=== PATIENT | female | born 1950 | race Caucasian/White ===

== ENCOUNTER 2019-07-02 15:29 | Inpatient (IN) ==
--- NOTE | 2019-07-02 16:04 | Emergency Department Note ---
ED Provider Note CHIEF COMPLAINT: Fall, left sided pain HISTORY OF PRESENT ILLNESS: The patient is a 68 y/o female who presents to the ER because of a fall. Patient was walking down her basement steps with new shoes on and tripped accidentally. The patient also notes the following associated symptoms: left eyebrow laceration, CHI, left elbow pain, left hip and rib pain. The symptoms started 60 min ago and are worsening with movement. The patient has tried the following for relief : no medication or treatment. Pain 9/10. Pt denies LOC, headache, visual changes, neck pain, right chest pain, breathing difficulties, nausea, vomiting, abdominal pain, back pain, other extremity pain, numbness, weakness, or other complaints. REVIEW OF SYSTEMS: See HPI for pertinent positives and negatives. A total of ten systems were reviewed and were otherwise negative. PMHx/PSHx: [place] teeth surgery Tonsillectomy SOCIAL HISTORY: Patient lives at home. PHYSICAL EXAM: GENERAL: Awake, alert, uncomfortable-appearing, in no distress HENT: Normocephalic, left eyebrow laceration. Oropharynx unremarkable. EYES: PERRL. Normal conjunctiva. Sclera non-icteric. NECK: Inspection normal. Non-tender. Supple. No nuchal rigidity. FROM. No masses. RESPIRATORY: Clear to auscultation. No wheezes. No rales. Normal respiratory effort. CARDIAC: Normal rate. Normal rhythm. No murmurs. No rubs. Extremities warm and well perfused. Pulses equal. No JVD. GI: Soft, non-distended. No tenderness to palpation. No rebound or guarding. No masses. MUSCULOSKELETAL: Right upper and right lower extremity atraumatic. Mild t enderness below the left hip joint but no limitation in range of motion. No significant pelvic tenderness or greater trochanteric tenderness. There is moderate swelling, and abrasion and tenderness of the left elbow. Range of motion is significantly limited secondary to pain. Some mild tenderness of the left shoulder without obvious dislocation. The midshaft of the humerus is nontender. Forearm, wrist and hand of the left upper extremity are unremarkable and examined normally. Left upper extremity is neurovascularly intact over all dermatomes and myotomes. Chest examination reveals no right or midline tenderness. There is left lower mid axillary rib tenderness to palpation. The back is symmetrical on inspection without obvious abnormality. There is no CVA tenderness to palpation. No joint edema. LOWER EXTREMITIES: Calves are equal size bilaterally and non-tender. No edema. No discoloration. NEURO: Normal sensorium. No sensory or motor deficits noted. SKIN: No rash or jaundice noted. EMERGENCY DEPARTMENT COURSE: 1601: Past medical records reviewed. The patient was evaluated in room B3, and a complete history and physical examination were performed. 1799: I reevaluated the patient and she states that the pain is tolerable as long as she is not moving. 1808: I updated the patient on the test results and plan for orthopedic consul tation 1823: I discussed the patient's case with Dr. Clemons- Orthopedic Surgery. He recommended splinting, pain control and outpatient follow-up for surgery likely this coming July 06. 1829: I updated the patient on the plan and she verbally agrees and understands. 1906: Patient was reassessed and discussed outpatient management. Patient felt comfortable with the plan. 2005: Patient became nauseated prior to discharge and was given IV Zofran. 2109: Patient had nausea and vomiting. She feels generally weak. IV Reglan and saline hydration performed. Discussed further management in the hospital given her nausea and vomiting. Consulted with internal medicine. MEDICAL DECISION MAKING: Triage Nursing notes reviewed. The patient's presentation and history were concerning for trauma. Differential diagnosis includes fracture, dislocation, soft tissue injury, closed head injury, rib fracture, intrathoracic process, intrapelvic process, as well as others. Additional history obtained from the patient significant other. Patient was evaluated. She has a laceration over the left eyebrow but has no other signs of head injury. She has no headache at this time. She believes that she struck possibly a faucet or edge of a sink. She was not knocked out. She has no neck tenderness. She does have rib and elbow tenderness along with some shoulder discomfort. X-ray imaging of those areas were ordered. Her hip examines extremely well other than some mild proximal thigh tenderness to palpation. She is able to bear weight. She was given a dose of IV Dilaudid and Zofran. Let gel was applied to the laceration. Patient had the laceration repaired by Glenna Angeles PA-C. Please see her note. I did consult with orthopedics given the fact that she has a significant left elbow fracture. The fracture fragments are distracted. The radial head and proximal ulnar fragments are out of alignment. The patient is neurovascular intact. She was splinted. After discussion with Dr. Clemons the patient was prepped for outpatient treatment however she became nauseated. Head CT was performed and negative. She was treated with IV Zofran and IV Reglan. Given her general ill feeling and the nausea she will not do well at home tonight. I discussed the case with the [facility] hospitalist. The patient was evaluated f or further management in the hospital. DEFINITIVE FRACTURE CARE NOTE: Dx: Closed left elbow fracture Plan: Immobilization, rest, ice, elevation, analgesia, orthopedic follow up in 4 days. SPLINTING NOTE: Dx: Left elbow fracture Procedure: Posterior long-arm with stirrup Ortho-Glass splint Indication: Closed fracture of the left elbow The injured extremity was identified. The patient was prepped and measured for the placement of a Posterior long-arm with stirrup Ortho-Glass splint. Splint applied in the standard fashion over a layer of webril and secured using an elastic bandage. Set into a position of function. Normal neurovascular status after placement verified by me. The patient tolerated the procedure well and the care of the splint was discussed with the patient and . No complications. 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 Beliefs That Will Affect Care: None Current Living Situation: Spouse Other Information That Helps Us Care for You: No Feels Safe at Home: No Is there a partner from a previous relationship who is making you feel unsafe now?: No Any Concerns about Your Family Situation: No Would You Like to Speak to Someone About Your Situation: No Safety Concerns: Feels Safe At This Time Smoking Status: Former smoker Tobacco Type: cigarettes ; Smoking End Date: 1992 ; Hx Alcohol Use: Yes Alcohol type: beer and wine Hx Substance Use: No Results & Data Vital Signs Vital Signs - 24 hr 07/02/19 15:35 07/02/19 16:47 07/02/19 18:55 Temperature 36.4 C L Temperature Source Oral Sepsis Recent Fever Within 48 Hours No Sepsis New/Unexplained Change in Mental Status No Sepsis Action Taken by Nursing No Action Required Pulse Rate 77 Pulse Rate [Finger] 72 71 Respiratory Rate 18 16 18 Blood Pressure 116/76 Blood Pressure [Right Arm] 100/61 Blood Pressure Mean 89 Blood Pressure Mean [Right Arm] 74 Pulse Oximetry 98 98 99 Oxygen Delivery Method Room Air Room Air Room Air 07/02/19 20:22 07/02/19 21:21 07/02/19 22:06 Temperature Temperature Source Sepsis Recent Fever Within 48 Hours Sepsis New/Unexplained Change in Mental Status Sepsis Action Taken by Nursing Pulse Rate Pulse Rate [Finger] 86 78 76 Respiratory Rate 14 12 14 Blood Pressure Blood Pressure [Right Arm] 82/59 L 96/56 L 99/51 L Blood Pressure Mean Blood Pressure Mean [Right Arm] 66 69 67 Pulse Oximetry 99 99 100 Oxygen Delivery Method Room Air Room Air Room Air Administered Medications Acetaminophen (Tylenol) 650 mg PO Q4H PRN PRN Reason: pain/fever Stop: 08/01/19 23:10 Last Admin: 07/02/19 23:30 Dose: 650 mg Documented by: [id number] Sodium Chloride (Nss 1000ml) 1,000 mls @ 75 mls/hr IV .[id number] GIOVANY Stop: 07/03/19 11:00 Last Admin: 07/02/19 23:31 Dose: 75 mls/hr Documented by: [id number] Discontinued Medications Hydrocodone Bitart/Acetaminophen ([place] 5/325mg Homepack) 1 homepack PO UD ONE Stop: 07/02/19 19:08 Last Admin: 07/02/19 20:22 Dose: 1 homepack Documented by: [id number] Hydromorphone HCl (Dilaudid) 0.5 mg IV Q15M PRN PRN Reason: Pain Stop: 07/16/19 16:09 Last Admin: 07/02/19 16:38 Dose: 0.5 mg Documented by: [id number] Sodium Chloride (Nss 1000ml) 500 mls @ 999 mls/hr IV .Q31M ONE Stop: 07/02/19 21:48 Last Infusion: 07/02/19 21:55 Dose: 0 mls/hr Documented by: [id number] Admin: 07/02/19 21:24 Dose: 999 mls/hr Documented by: [id number] Lidocaine (Let Gel 4%/1:100/0.5%) 1 ea EXT NOW STA Stop: 07/02/19 16:11 Last Admin: 07/02/19 16:42 Dose: 1 ea Documented by: [id number] Lidocaine/Epinephrine (Buffered Xylocaine/Epinephrine 1%) Confirm Administered Dose 20 ml .ROUTE .STK-MED ONE Stop: 07/02/19 18:25 Last Admin: 07/02/19 18:26 Dose: 20 ml Documented by: [id number] Metoclopramide HCl (Reglan) 5 mg IV ONE ONE Stop: 07/02/19 21:22 Last Admin: 07/02/19 21:26 Dose: 5 mg Documented by: [id number] Ondansetron HCl (Zofran) 4 mg IV NOW STA Stop: 07/02/19 16:11 Last Admin: 07/02/19 16:38 Dose: 4 mg Documented by: [id number] Ondansetron HCl (Zofran Odt 4mg Home Pack) 1 homepack PO NOW ONE Stop: 07/02/19 19:08 Last Admin: 07/02/19 20:22 Dose: 1 homepack Documented by: [id number] Ondansetron HCl (Zofran) 4 mg IV NOW STA Stop: 07/02/19 20:07 Last Admin: 07/02/19 20:22 Dose: 4 mg Documented by: [id number] Discharge Plan Visit Data *Final* Discharge Date/Time: 07/02/19 23:06 Chief Complaint: Fall Stated Complaint: HURT RIBS ED Provider: Anjel Hunt Discharge Problem: Closed fracture dislocation of left elbow, Fracture of rib of left side, Forehead laceration, Contusion of left thigh, Accidental fall Patient Disposition: Admitted As Inpatient Discharge Instructions Interventions: ED Discharge Assessment Last Done: 07/02/19 23:06 Discharge Problem: Closed fracture dislocation of left elbow Qualifiers: Encounter type: initial encounter Qualified Code(s): S42.402A - Unspecified fracture of lower end of left humerus, initial encounter for closed fracture Fracture of rib of left side Qualifiers: Encounter type: initial encounter Rib fracture type: single rib Fracture type: closed Qualified Code(s): S22.32XA - Fracture of one rib, left side, initial encounter for closed fracture Forehead laceration Qualifiers: Encounter type: initial encounter Qualified Code(s): S01.81XA - Laceration without foreign body of other part of head, initial encounter Contusion of left thigh Qualifiers: Encounter type: initial encounter Qualified Code(s): S70.12XA - Contusion of left thigh, initial encounter Accidental fall Qualifiers: Encounter type: initial encounter Qualified Code(s): W19.XXXA - Unspecified fall, initial encounter
[2019-07-02] MEDS ORDERED: LIDOCAINE/EPINEPH/TETRACAINE 1 EA SYR EXT STA (16:10)
[2019-07-02] MEDS ORDERED: ONDANSETRON INJ 2 MG/ML 2 ML VIAL IV STA ×2 (16:10→20:06)
[2019-07-02] MEDS ORDERED: HYDROmorphone INJ 0.5 MG/0.5 ML SYR IV PRN (16:10)
--- NOTE | 2019-07-02 18:03 | XRay Report ---
XR femur LT 4V routine CLINICAL HISTORY: Left femur pain status post trauma COMPARISON: None. DISCUSSION: No fractures or dislocations are visualized. IMPRESSION: No fractures identified. Electronically signed by: Osmani Hill M.D. 07/02/2019 6:02 PM
--- NOTE | 2019-07-02 18:03 | XRay Report ---
XR shoulder LT min 2V routine CLINICAL HISTORY: Left shoulder pain status post trauma COMPARISON: None. DISCUSSION: No fractures or dislocations are visualized. There are mild degenerative changes present within the glenohumeral joint. IMPRESSION: No fractures or dislocations identified. Electronically signed by: Osmani Hill M.D. 07/02/2019 6:02 PM
--- NOTE | 2019-07-02 18:06 | XRay Report ---
XR ribs LT min 3V w CXR1V CLINICAL HISTORY: Rib pain status post trauma COMPARISON STUDY: No previous studies for comparison. FINDINGS: Direct chest reveals no pneumothorax. There is no focal pulmonary consolidation. There is a linear scarring/atelectatic change at the right medial lung base. There is minimal age-indeterminate irregularity of the left fifth rib laterally IMPRESSION: 1. Minimal age-indeterminate irregularity of the left fifth rib laterally. Otherwise unremarkable lef t rib series. No evidence of pneumothorax. Electronically signed by: Osmani Hill M.D. 07/02/2019 6:05 PM
--- NOTE | 2019-07-02 18:11 | XRay Report ---
XR elbow LT min 3V routine CLINICAL HISTORY: Left elbow pain status post trauma COMPARISON: None. DISCUSSION: There is a comminuted olecranon fracture with 3.5 cm of distraction, and 90 degrees of ro tation. Multiple tiny bony fragments are visualized. There is soft tissue swelling. There is volar ledbetter bluxation of the radial head and proximal ulna.. IMPRESSION: 1. Comminuted distracted and rotated olecranon fracture. 2. Anterior subluxation of the radial head and proximal ulna. Electronically signed by: Osmani Hill M.D. 07/02/2019 6:10 PM
[2019-07-02] MEDS ORDERED: LIDO/EPINEPHRINE/SOD BICARB 20 ML VIAL ONE (18:24)
[2019-07-02] MEDS ORDERED: NORCO 5/325MG HOMEPACK PO ONE (19:07)
[2019-07-02] MEDS ORDERED: ONDANSETRON HOME PACK 4MG OD TAB PO ONE (19:07)
[2019-07-02] MEDS ORDERED: SODIUM CHLORIDE 0.9% 1000ML 500 ML IV ONE (21:18)
[2019-07-02] MEDS ORDERED: METOCLOPRAMIDE HCL INJ 5 MG/ML 2 ML VIAL IV ONE (21:21)
--- NOTE | 2019-07-02 21:50 | CT Scan Report ---
CT head/brain wo con CLINICAL HISTORY: Head pain status post trauma COMPARISON STUDY: No previous studies for comparison. TECHNIQUE: Axial CT of the brain is performed from the vertex to the skull base. IV contrast was not administered for this examination. A dose lowering technique was utilized adhering to the principles of ALARA. CT DOSE: 638.56 mGycm FINDINGS: No intra or extra-axial mass lesions are visualized. There is no CT evidence of acute cortical infarc tion. There is no evidence of midline shift. There is no acute hemorrhage. No calvarial fractures ar e visualized. There are minimal white matter hypodensities likely on a small vessel basis. There is no evidence of pathologic ventricular dilatation. There is no evidence of acute sinusitis IMPRESSION: No acute intracranial findings Electronically signed by: Osmani Hill M.D. 07/02/2019 9:48 PM
--- NOTE | 2019-07-02 22:48 | Emergency Department Note ---
Entered by Helga Zhu acting as a scribe for ED Provider Note CHIEF COMPLAINT: [] HISTORY OF PRESENT ILLNESS: The patient is a [] year old [] who presents to the Emergency Room with complaints of [] Pt denies LOC, headache, fevers, chills, diaphoresis, visual changes, neck pain, chest pain, breathing difficulties, nausea, vomiting, abdominal pain, back pain, melena, hematochezia, urinary symptoms, numbness, weakness, lymphadeno neva, rash, or other complaints. REVIEW OF SYSTEMS: See HPI for pertinent positives and negatives. A total of ten systems were reviewed and were otherwise negative. PMHx/PSHx: Left foot injury SOCIAL HISTORY: Patient lives at home. PHYSICAL EXAM: GENERAL: Awake, alert, well-appearing, in no distress HENT: Normocephalic, atraumatic. Oropharynx unremarkable. EYES: PERRL. Normal conjunctiva. Sclera non-icteric. NECK: Inspection normal. Non-tender. Supple. No nuchal rigidity. FROM. No masses. RESPIRATORY: Clear to auscultation. No wheezes. No rales. Normal respiratory effort. CARDIAC: Normal rate. Normal rhythm. No murmurs. No rubs. Extremities warm and well perfused. Pulses equal. No JVD. GI: Soft, non-distended. No tenderness to palpation. No rebound or guarding. No masses. RECTAL: Deferred. MUSCULOSKELETAL: Atraumatic. Chest examination reveals no tenderness. The back is symmetrical on inspection without obvious abnormality. There is no CVA tenderness to palpation. No joint edema. LOWER EXTREMITIES: Calves are equal size bilaterally and non-tender. No edema. No discoloration. NEURO: Normal sensorium. No sensory or motor deficits noted. SKIN: No rash or jaundice noted. EMERGENCY DEPARTMENT COURSE: 160: Past medical records reviewed. The patient was evaluated in room B3, and a complete history and physical examination were performed. 1800: I reevaluated the patient and she states that the pain is tolerable as long as she is not moving. 180: I updated the patient on the test results and plan for admission. 182: I discussed the patient's case with Dr. Clemons- Orthopedic Surgery. He will evaluate the patient for further management. 183: I updated the patient on the plan and she verbally agrees and understands. MEDICAL DECISION MAKING: [] IMPRESSION: Closed fracture dislocation of left elbow, fracture of 5th rib of left side, forehead laceration, contusion of left thigh, accidental fall. PLAN: Evaluated by Surgeon The scribe's documentation has been prepared under my direction and personally reviewed by me in its entirety. I confirm that the note above accurately reflects all work, treatment, procedures, and medical decision making performed by me. Impression & Plan Closed fracture dislocation of left elbow, Fracture of rib of left side, Forehead laceration, Contusion of left thigh, Accidental fall Past Med/Surg History Medical History Injury of left foot Social History Preferred Language: Italian Feels Safe at Home: Yes Smoking Status: Former smoker Results & Data Vital Signs Vital Signs - 24 hr 07/02/19 15:35 07/02/19 16:47 07/02/19 18:55 Temperature 36.4 C L Temperature Source Oral Sepsis Recent Fever Within 48 Hours No Sepsis New/Unexplained Change in Mental Status No Sepsis Action Taken by Nursing No Action Required Pulse Rate 77 Pulse Rate [Finger] 72 71 Respiratory Rate 18 16 18 Blood Pressure 116/76 Blood Pressure [Right Arm] 100/61 Blood Pressure Mean 89 Blood Pressure Mean [Right Arm] 74 Pulse Oximetry 98 98 99 Oxygen Delivery Method Room Air Room Air Room Air Home Medications Current Medication List: was personally reviewed by me Administered Medications Hydromorphone HCl (Dilaudid) 0.5 mg IV Q15M PRN PRN Reason: Pain Stop: 07/16/19 16:09 Last Admin: 07/02/19 16:38 Dose: 0.5 mg Documented by: [id number] Discontinued Medications Lidocaine (Let Gel 4%/1:100/0.5%) 1 ea EXT NOW STA Stop: 07/02/19 16:11 Last Admin: 07/02/19 16:42 Dose: 1 ea Documented by: [id number] Lidocaine/Epinephrine (Buffered Xylocaine/Epinephrine 1%) Confirm Administered Dose 20 ml .ROUTE .STK-MED ONE Stop: 07/02/19 18:25 Last Admin: 07/02/19 18:26 Dose: 20 ml Documented by: [id number] Ondansetron HCl (Zofran) 4 mg IV NOW STA Stop: 07/02/19 16:11 Last Admin: 07/02/19 16:38 Dose: 4 mg Documented by: [id number] Imaging Data Radiologist's Impression: Radiology results as stated below per my review and the radiologist's interpretation: XR shoulder LT min 2V routine CLINICAL HISTORY: Left shoulder pain status post trauma COMPARISON: None. DISCUSSION: No fractures or dislocations are visualized. There are mild degenerative changes present within the glenohumeral joint. IMPRESSION: No fractures or dislocations identified. Electronically signed by: Osmani Hill M.D. 07/02/2019 6:02 PM XR elbow LT min 3V routine CLINICAL HISTORY: Left elbow pain status post trauma COMPARISON: None. DISCUSSION: There is a comminuted olecranon fracture with 3.5 cm of distraction, and 90 degrees of rotation. Multiple tiny bony fragments are visualized. There is soft tissue swelling. There is volar subluxation of the radial head and proximal ulna.. IMPRESSION: 1. Comminuted distracted and rotated olecranon fracture. 2. Anterior subluxation of the radial head and proximal ulna. Electronically signed by: Osmani Hill M.D. 07/02/2019 6:10 PM XR ribs LT min 3V w [id number] CLINICAL HISTORY: Rib pain status post trauma COMPARISON STUDY: No previous studies for comparison. FINDINGS: Direct chest reveals no pneumothorax. There is no focal pulmonary consolidation. There is a linear scarring/atelectatic change at the right medial lung base. There is minimal age-indeterminate irregularity of the left fifth rib laterally IMPRESSION: 1. Minimal age-indeterminate irregularity of the left fifth rib laterally. Otherwise unremarkable left rib series. No evidence of pneumothorax. Electronically signed by: Osmani Hill M.D. 07/02/2019 6:05 PM XR femur LT 4V routine CLINICAL HISTORY: Left femur pain status post trauma COMPARISON: None. DISCUSSION: No fractures or dislocations are visualized. IMPRESSION: No fractures identified. Electronically signed by: Osmani Hill M.D. 07/02/2019 6:02 PM Blood Pressure Blood Pressure Findings: Normal blood pressure Blood Pressure Disposition: did not require urgent referral Discharge Plan Visit Data Chief Complaint: Fall Stated Complaint: HURT RIBS ED Provider: Anjel Hunt Discharge Problem: Closed fracture dislocation of left elbow, Fracture of rib of left side, Forehead laceration, Contusion of left thigh, Accidental fall Patient Disposition: Being Evaluated by Surgeon Discharge Instructions Activity Restrictions/Additional Instructions: ORTHOPEDIC INSTRUCTIONS: DO NOT drive, drink alcohol, operate machinery, or perform dangerous activities today. You were given medications in the ER that can affect your ability to safely function or operate a vehicle. Hydrocodone/acetaminophen 5/325mg: Take 1-2 pills every 6 hours as needed for pain. Avoid additional Acetaminophen/Tylenol, alcohol, operating machinery or d angerous equipment, working on ladders or roofs, DRIVING, or situations where being under the influence may be dangerous. It is recommended to use a stool softener such as Colace, 100mg twice daily while taking this medication to avoid constipation. Zofran (ondansetron) tablets 4mg: Take one every 4 hours as needed for nausea. Ibuprofen(Motrin, Advil) may be used for fever or pain. Use 600mg every six hours as needed. Take with food. Avoid using more than 2400mg in a 24 hour period. Do not use 2400mg per day for more than three consecutive days without physician direction. Prolonged inappropriate use can lead to stomach upset or ulcers. Ice compresses for 20 minutes at a time four times daily for 2-3 days. Use the sling as instructed. Rest and elevate your injury. Do not get the splint wet. If your splint feels excessively tight, you have worsening pain, develop numbness or tingling, or your digits appear blue, loosen the gunnar wrap. Then reapply the gunnar wrap gently without removing the splint. If your symptoms are not quickly relieved return to the ER for re-evaluation. Take deep breaths every hour or 2 hours to fully expand your lungs due to the left fifth rib fracture. Return to the ER immediately for any chest pain, difficulty breathing, confusion, severe headache, numbness, tingling, severe pain, extreme swelling in the extremity or as needed. Call [facility], [phone], Dr. Clemons, Thursday 8AM to arrange follow up for your injury. WOUND CARE INSTRUCTIONS: Bacitracin to wounds once daily. Use a non-stick dressing such as a large band-aid. Change the dressings once a day. Allow your wounds to air dry several hours per day when you are resting, but it is a good idea to keep them covered while sleeping to prevent irritation and the sheets sticking to the wound. Apply direct pressure for any bleeding. Return to the ER immediately for spreading redness, fevers, pus-like drainage, severe pain, or as needed. Return to the ER in 5-6 days for suture/staple removal, or sooner as needed. Forms Stand Alone Forms: Renetta Gary [employer] Prescriptions Prescriptions: New hydrocodone-acetaminophen [[place]] 5-325 mg tablet 1 - 2 tab PO Q6H PRN (Reason: pain) Qty: 14 RF: 0 No Action multivitamin with minerals [Multiple Vitamin-Minerals] Tablet 1 tab PO DAILY RF: 0 omega 7-ehy-ruv-fish oil [Fish Oil] 1,000 mg (120 mg-180 mg) Capsule 1 cap PO TID RF: 0 cholecalciferol (vitamin D3) 400 unit Tablet 400 unit PO BID RF: 0 garlic Tablet 1 tab PO TID RF: 0 Referrals Referrals: Jia Burger MD [Primary Care Provider] - Discharge Problem: Closed fracture dislocation of left elbow Qualifiers: Encounter type: initial encounter Qualified Code(s): S42.402A - Unspecified fracture of lower end of left humerus, initial encounter for closed fracture Fracture of rib of left side Qualifiers: Encounter type: initial encounter Rib fracture type: single rib Fracture type: closed Qualified Code(s): S22.32XA - Fracture of one rib, left side, initial encounter for closed fracture Forehead laceration Qualifiers: Encounter type: initial encounter Qualified Code(s): S01.81XA - Laceration without foreign body of other part of head, initial encounter Contusion of left thigh Qualifiers: Encounter type: initial encounter Qualified Code(s): S70.12XA - Contusion of left thigh, initial encounter Accidental fall Qualifiers: Encounter type: initial encounter Qualified Code(s): W19.XXXA - Unspecified fall, initial encounter
[2019-07-02] MEDS ORDERED: ONDANSETRON INJ 2 MG/ML 2 ML VIAL IV PRN (23:11)
[2019-07-02] MEDS ORDERED: POLYETHYLENE (MIRALAX) 17 GM PACK PO PRN (23:11)
--- NOTE | 2019-07-02 23:16 | History and Physical Report ---
DATE OF ADMISSION: 07/02/2019 CHIEF COMPLAINT: Status post fall and left elbow fracture. HISTORY OF PRESENT ILLNESS: This is a 68-year-old female with past medical history significant for hyperlipidemia, not on any medications, hypothyroidism, not on medication and a history of diverticulosis of colon, who lives with her , fell at home. She was going down basement steps. She was in new boots which she was not accustomed to. She slipped and fell about possible 5-6 steps. No loss of consciousness. After some time, she was able to get up and had significant pain and came to the Emergency Room and found to have mild left 5th rib fracture laterally and also comminuted, distracted and rotated olecranon fracture and anterior subluxation of the radial head and proximal ulna. The patient has been placed on a sling and Orthopedics was notified and they recommended to follow up as outpatient, but the patient is allergic to codeine, she states she gets very sick with nausea and vomiting, but she had it long time back. In the Emergency Room, IV Dilaudid was given which caused again significant nausea, so we are called to observe the patient overnight. The patient currently states the nausea is improved. She has some chest soreness from her fall. Denies any shortness of breath. No cough. No recent fever or chills. Currently, no headache. No blurred vision. No earaches. No runny nose. No abdominal pain. Normal bowel and bladder movements. No hematuria or burning micturition. No black stools or hematochezia. No swelling in the legs except for some scrapings on her left lower extremity from the fall. No rash. Otherwise, before the fall, her ambulation was okay. Lives with her . ALLERGIES: DOG DANDER, CAT DANDER, DIPHENHYDRAMINE, MORPHINE AND RELATED, SHELLFISH AND CODEINE. PAST MEDICAL HISTORY: As mentioned above. PAST SURGICAL HISTORY: Colonoscopy, dental surgery and removal of tonsils. MEDICATIONS: The patient is on vitamin D 4000 units p.o. b.i.d., fish oil 2000 mg t.i.d., garlic 1000 mg p.o. daily, ibuprofen p.r.n., multivitamins once daily and Tums p.r.n. FAMILY HISTORY: Significant for mother had arthritis, from surgical infection. Father of kidney failure at age of 58. Maternal aunt has breast cancer. Sister has thyroid disorder. SOCIAL HISTORY: , lives with her . Quit smoking in 1992, smoked 1 pack a day for 25 years. Alcohol occasional. No drug use. REVIEW OF SYMPTOMS: As per HPI. Rest of review of systems negative. PHYSICAL EXAMINATION: GENERAL: The patient is of moderate build, not in acute distress. VITAL SIGNS: Temperature 36.4, pulse 76, respiratory rate 14, blood pressure 99/51and oxygen 100% on room air. HEENT: No pallor. No icterus. Pupils are equal, round and reactive to light. Extraocular muscles intact. NECK: No JVD. No neck masses. No carotid bruits. CARDIOVASCULAR: S1, S2 heard. Regular rate and rhythm. No murmur. No gallop. RESPIRATORY SYSTEM: Normal AP diameter. No accessory muscle use. No wheezing. No crackles. ABDOMEN: Soft. Bowel sounds present. Nontender. No distention. CENTRAL NERVOUS SYSTEM: Alert and oriented. Nonfocal. EXTREMITIES: Left upper extremity is in sling. Mild scrapings seen on the left driver and knee region. LABORATORY DATA: Currently not available. ASSESSMENT AND PLAN: This is a 68-year-old female who presents with a fall and left elbow fracture. 1. Mechanical fall . Fell from basement steps, has left elbow fracture, comminuted distracted and rotational olecranon fracture. Posterior subluxation of the radial head and proximal ulna. Also minimally age indeterminate irregularity of the left fifth rib laterally.. The patient is in a sling in left upper extremity. Pain control with I.V.Tylenol as she could not tolerate Dilaudid and she is allergic to codeine and morphine with the nausea and vomiting symptoms. We will place on I.V. Tylenol for now and Orthopedics consult in a.m. for further recommendations. Observe on the medical floor.Pt/Ot. 2. Nausea and vomiting from narcotic pain medication. I.V. Zofran p.r.n. Gentle fluids. 3. History of hyperlipidemia, not on medications. Follow up with primary care physician. 4. History of hypothyroidism, not on medication. Follow up thyroid stimulating hormone. 5. Deep venous thrombosis prophylaxis, sequential compression devices. 6. Disposition: Observation on medical floor. Expect to discharge home and follow up with family doctor. Level 1 full code. Addendum: Later tolerated Percocet. MTDD
[2019-07-02] MEDS: ACETAMINOPHEN 325 MG TAB PO PRN (23:30)
[2019-07-02] MEDS: SODIUM CHLORIDE 0.9% 1000ML 1,000 ML IV SCH (23:31)
[2019-07-03] MEDS ORDERED: OXYCODONE/ACETAMINOPHEN 5mg/325mg TAB PO PRN (02:04)
[2019-07-03 05:29] LABS: Basophils # (auto) 0.01 K/uL (0-0.2); Basophils % (auto) 0.1 %; Hematocrit (blood only) 26.6 % (37-47); Hemoglobin 9.3 g/dL (12.0-16.0); Immature Granulocytes # (auto) 0.01 K/uL (0.00-0.02); Immature Granulocytes % (auto) 0.1 %; Lymphocytes # (auto) 2.08 K/uL (1.2-3.4); Lymphocytes % (auto) 20.8 %; Mean Corpuscular Hemoglobin 32.3 pg (25-34); Mean Corpuscular Volume 92.4 fL (80-100); Mean Platelet Volume 9.2 fL (7.4-10.4); Monocytes # (auto) 0.65 K/uL (0.11-0.59); Monocytes % (auto) 6.5 %; Neutrophils # (auto) 7.23 K/uL (1.4-6.5); Neutrophils % (auto) 72.5 %; Platelet Count 201 K/uL (130-400); RDW Coefficient of Variation 12.2 % (11.5-14.5); RDW Standard Deviation 41.6 fL (36.4-46.3); Red Blood Count 2.88 M/uL (4.2-5.4); White Blood Count 9.98 K/uL (4.8-10.8)
[2019-07-03 05:57] LABS: BUN Creatinine Ratio 27.4 (10-20); Calcium 7.9 mg/dl (8.5-10.1); Creatinine Clr Calc Pharmacy 52.9 ml/min; Est GFR (African American) 75.1; Est GFR (Non-African American) 64.8; Magnesium 1.9 mg/dl (1.8-2.4); Potassium 4.7 mmol/L (3.5-5.1)
[2019-07-03] MEDS: ACETAMINOPHEN 1,000 MG/100 ML VIAL IV PRN (07:18)
[2019-07-03] MEDS: CEROVITE ADV FORMULA TAB PO SCH (08:45)
[2019-07-03] MEDS: CHOLECALCIFEROL (VITAMIN D) 400 UNITS TABLET PO SCH ×2 (08:45→20:30)
--- NOTE | 2019-07-03 09:11 | Hospitalist Progress Note ---
Date of Service July 03, 2019 Subjective Patient meets admission criteria as she was hypotensive with SBP in 90's. On IV fluids. Will monitor. Results & Data Vital Signs (Past 12 Hours) Vital Signs Temp Pulse Resp BP Pulse Ox 07/03/19 07:24 37.2 C 82 16 91/54 L 07/02/19 23:39 36.7 C 80 15 97/66 L 100 07/02/19 22:56 80 18 95/53 L 99 07/02/19 22:06 76 14 99/51 L 100 07/02/19 21:21 78 12 96/56 L 99
--- NOTE | 2019-07-03 09:40 | Consultation Report ---
DATE OF CONSULTATION: 07/03/2019 CHIEF COMPLAINT: Left elbow pain. SUBJECTIVE: The patient is a 68-year-old female who suffered a left elbow injury yesterday when she fell down 5 or 6 steps at home. She suffered a laceration on her left forehead region as well as was having some thoracic pain. She was brought to the [facility] ED for evaluation. She has a laceration on her head sutured. X-rays of the left elbow revealed a displaced, mildly comminuted left olecranon fracture with elbow dislocation. There is also concern for possible left 5th rib fracture. The decision was made to admit her by the medical service and an orthopedics consult was asked for. Generally, she is healthy without significant cardiovascular disease, diabetes, or pulmonary issues. She denies any loss of consciousness as a result of fall, although she does have the laceration on her left forehead region. She does have some pain in the left-sided rib region. She states her left thigh is swollen as well. Currently, she is lying in bed, left elbow in a sling and splint. Her fingers are mobile, neurovascularly intact. She has a Band-Aid over the laceration on her left forehead. She does have some visual and palpable swelling in the left upper thigh region compared to the right uninvolved. Her hip is nonirritable to motion. Her toes are neurovascularly intact. X-RAYS: X-rays of the left elbow were reviewed and show a significantly displaced, mildly comminuted, intra-articular fracture of the left olecranon. The elbow was dislocated as well. ASSESSMENT: Left elbow olecranon fracture/dislocation. PLAN: Above discussed with the patient and her . She is going to require surgery for her elbow. I will discuss with Dr. Clemons and he will determine the surgical plan.
--- NOTE | 2019-07-03 09:46 | Anesthesiology Consultation ---
Date of Service July 03, 2019 Assessment & Plan (1) Encounter for pre-operative examination: Chart Review Chart Review: Acceptable Risk for Surgery Consults Requested none ASA ASA2 Proposed Anesthesia Anesthesia Type: General Regional Regional Laterality: Left Site: Infraclavicular Risk / Benefits Reviewed With: PT / POA / Parent / Guardian, Accepts Plan and Informed Consent Obtained History Surgery Operation Date: 07/03/19 08:05 Proposed Procedures p Open Reduction Internal Fixation Elbow(Left) - Jefferson Clemons, Height/Weight Height: 5 ft 2 in Weight: 66.4 kg Allergies Allergy/AdvReac Type Severity Reaction Status Date / Time codeine AdvReac Vomiting Unverified 07/02/19 17:34 diphenhydramine AdvReac Vomiting Unverified 07/02/19 17:34 shellfish derived AdvReac Vomiting Unverified 07/02/19 17:33 Medications Home Medications Medication Instructions Recorded Confirmed Last Taken cholecalciferol (vitamin D3) 400 unit PO BID 07/02/19 07/02/19 Unknown garlic 1 tab PO TID 07/02/19 07/02/19 Unknown hydrocodone-acetaminophen [[place]] 1 - 2 tab PO Q6H PRN #14 tab 07/02/19 Unknown multivitamin with minerals 1 tab PO DAILY 07/02/19 07/02/19 Unknown [Multiple Vitamin-Minerals] omega 6-hcz-ovx-fish oil [Fish Oil] 1 cap PO TID 07/02/19 07/02/19 Unknown Active Medications Generic Name Dose Route Start Last Admin Trade Name Freq PRN Reason Stop Dose Admin Acetaminophen 650 mg 07/02/19 23:11 07/02/19 23:30 Tylenol PO 08/01/19 23:10 650 mg Q4H PRN Administration pain/fever Acetaminophen 1,000 mg in 100 mls @ 400 mls/hr 07/02/19 23:11 07/03/19 07:49 Ofirmev IV 08/01/19 23:10 Infused Q8H PRN Infusion Pain Multivitamins/Minerals 1 tab 07/03/19 09:00 07/03/19 08:45 Multivitamin W/ Minerals Tab PO 08/02/19 08:59 Not Given DAILY GIOVANY Vitamin D 400 units 07/03/19 09:00 07/03/19 08:45 Vitamin D3 PO 08/02/19 08:59 Not Given BID GIOVANY NPO Date Last Intake of Fluids: 07/03/19 Time Last Intake of Fluids: 02:00 Date Last Intake of Solids: 07/03/19 Time Last Intake of Solids: 02:00 Past Medical History Medical History Hyperlipidemia not high enough for medication Injury of left foot Exercise / Class Metabolic Activity II 4-5 Yardwork/Stairs/Walk up hill Past Surgical History Surgical History History of tonsillectomy S/P wisdom tooth extraction Past Anesthesia History No Hx of Anesthesia Complications and No Family Hx of Anesthesia Complications History of PONV No Hx of PONV and No Hx of Motion Sickness Social History Smoking Status: Former smoker tobacco type: cigarettes Smoking End Date: 1992 Hx Alcohol Use: Yes Alcohol type: beer and wine alcohol intake frequency: 3 or more drinks per day Hx Substance Use: No Physical Exam Vital Signs Last Vital Signs Temp 99.0 F 07/03/19 07:24 Pulse 82 07/03/19 07:24 Resp 16 07/03/19 07:24 BP 91/54 L 07/03/19 07:24 Pulse Ox 100 07/02/19 23:39 ENMT Mouth: no dentition abnormality Thyromental Distance: > or= 3.5 Finger Breadths Mallampati Class: II Neck normal visual inspection Respiratory normal respiratory effort Auscultation: lungs clear to auscultation bilaterally Cardiovascular Rate/Rhythm: regular rate and regular rhythm Heart Sounds: + murmur (3/6 LEO) Testing Laboratory Results 07/03/19 05:11 07/03/19 05:11 Blood Type O Positive 07/03/19 08:59 Antibody Screen NEGATIVE 07/03/19 08:59 Electrocardiogram Date: 07/03/19 Normal sinus rhythm, rate 79 bpm Possible Left atrial enlargement Borderline ECG When compared with ECG of 16-NOV-1994 17:41, No significant change was found Chest X-Ray Date: 07/02/19 IMPRESSION: 1. Minimal age-indeterminate irregularity of the left fifth rib laterally. Otherwise unremarkable left rib series. No evidence of pneumothorax. Echocardiogram Date: 07/03/19 EF: 75% Per Dr. Nunez, hyperdynamic heart possible CECILE mild-mod MR
[2019-07-03] MEDS: SODIUM CHLORIDE 0.9% 1000ML 1,000 ML IV SCH ×2 (10:38→17:59)
[2019-07-03] MEDS ORDERED: PERFLUTREN LIPID MICROSPHERE (DEFINITY) IV ONE (11:49)
[2019-07-03] MEDS ORDERED: ATROPINE SULFATE 0.1 MG/ML 10ML SYR IV PRN (12:20)
[2019-07-03] MEDS ORDERED: fentaNYL citrate 100 MCG/2 ML VIAL IV PRN (12:20)
[2019-07-03] MEDS ORDERED: ePHEDrine sulfate 50 MG/ML AMP IV PRN (12:20)
[2019-07-03] MEDS ORDERED: ONDANSETRON INJ 2 MG/ML 2 ML VIAL IV PRN ×2 (12:20→16:24)
[2019-07-03] MEDS ORDERED: ROPIVACAINE 0.5% 5 MG/ML 30 ML VIAL ONE (12:24)
--- NOTE | 2019-07-03 12:24 | History & Physical Bridge Note ---
Date of Service July 03, 2019 History & Physical Bridge Note I have examined the patient, reviewed the History & Physical and in the interval since the performance of the History & Physical I have noted the following changes of clinical significance: Will require open reduction internal fixation left elbow olecranon and radial head fracture dislocation.
[2019-07-03] MEDS ORDERED: MIDAZOLAM HCL 1 MG/ML 2ML VIAL ONE ×2 (12:28→12:32)
[2019-07-03] MEDS ORDERED: LIDOCAINE HCL 2% 2 ML VIAL/AMP(20MG/ML) INFIL ONE (12:28)
[2019-07-03] MEDS ORDERED: fentaNYL citrate 100 MCG/2 ML VIAL ONE (12:28)
[2019-07-03] MEDS ORDERED: PROPOFOL IV EMULSION 10 MG/ML 20 ML VIAL IV ONE (12:28)
[2019-07-03] MEDS ORDERED: ONDANSETRON INJ 2 MG/ML 2 ML VIAL ONE (12:29)
[2019-07-03] MEDS ORDERED: CEFAZOLIN 250 MG/ML 1 GM VIAL ONE (13:08)
[2019-07-03] MEDS ORDERED: CEFAZOLIN 2000MG 2,000 MG/15 ML SYR IV ONE (13:17)
[2019-07-03] MEDS ORDERED: PHENYLEPHRINE 100MCG/ML 5ML SYR ONE ×2 (13:24→13:35)
[2019-07-03] MEDS ORDERED: ePHEDrine sulfate 50 MG/ML SYR ONE ×2 (13:24→14:14)
--- NOTE | 2019-07-03 15:05 | Post Operative Brief Note ---
Immediate Post Op Note v1 Date of Surgery July 03, 2019 Pre & Post Diagnosis Operation Date: 07/03/19 08:05 Pre-Op Diagnosis: 1. Left elbow comminuted olecranon fracture/dislocation 2. Left elbow radial head dislocation Post-Op Diagnosis: 1. Left elbow comminuted olecranon fracture/dislocation 2. Left elbow radial head dislocation Procedure Operation Date: 07/03/19 08:05 Actual Procedures p Open Reduction Internal Fixation comminuted left olecranon fracture s Open reduction radial head dislocation(Left) - Jefferson Clemons DO Surgeon Jefferson Clemons DO Brine Mixer Operator Christiano Jackson PA-C Estimated Blood Loss 20 Findings Consistent with Post-Op Diagnosis Specimens None Anesthesia Type General Regional Complications none Disposition Accompanied Patient To Recovery: No Disposition: Recovery Room
--- NOTE | 2019-07-03 15:26 | Fluoroscopy Report ---
FL elbow LT 2V CLINICAL HISTORY: LEFT ELBOW ORIF COMPARISON STUDY: Left elbow 07/02/2019. FLUOROSCOPY TIME: 2 minutes and 9 seconds. FINDINGS: Internal fixation of the olecranon fracture with plate and screws. The hardware appears int act. Alignment appears near anatomic. 2 fluoroscopic spot images submitted. IMPRESSION: Fluoroscopy provided for internal fixation of a left olecranon fracture. Electronically signed by: Darian Paredes M.D. 07/03/2019 3:25 PM
--- NOTE | 2019-07-03 15:50 | Anesthesiology Progress Note ---
Date of Service July 03, 2019 Anesthesia Post Procedure Vital Signs Vital Signs: Temp Pulse Pulse Resp BP Pulse Ox 07/03/19 15:45 112 H 24 109/67 94 07/03/19 15:35 108 H 24 107/70 100 07/03/19 15:25 111 H 24 104/70 100 07/03/19 15:19 99.7 F H 110 H 16 106/67 100 07/03/19 07:24 99.0 F 82 16 91/54 L 07/02/19 23:39 98.1 F 80 15 97/66 L 100 07/02/19 22:56 80 18 95/53 L 99 07/02/19 22:06 76 14 99/51 L 100 07/02/19 21:21 78 12 96/56 L 99 07/02/19 20:22 86 14 82/59 L 99 07/02/19 18:55 71 18 100/61 99 07/02/19 16:47 72 16 98 Pain Intensity Left Elbow: Pain Intensity: 4 Left Upper Leg: Pain Intensity: 4 Transfer of Care Handoff Completed per policy Notes Mental Status: alert / awake / arousable and participated in evaluation Patient Amnestic to Procedure: Yes Nausea / Vomiting: adequately controlled Pain: adequately controlled Airway Patency, RR, SpO2: stable & adequate BP & HR: stable & adequate Hydration State: stable & adequate Anesthetic Complications: no major complications apparent and Pt Satisfied with anesthetic care
--- NOTE | 2019-07-03 16:17 | Operative Report ---
DATE OF OPERATION: 07/03/2019 PREOPERATIVE DIAGNOSES: 1. Left elbow comminuted olecranon fracture dislocation. 2. Radial head dislocation. POSTOPERATIVE DIAGNOSES: 1. Left elbow comminuted olecranon fracture dislocation. 2. Radial head dislocation. PROCEDURES: 1. Open reduction and internal fixation of left elbow comminuted olecranon fracture dislocation. 2. Open reduction of radial head dislocation. 3. Chondroplasty and debridement of osteochondral defect in humeral trochlea. SURGEON: Jefferson Clemons DO. THERAPIST ASST: Christiano Jackson PA-C who was present for patient positioning, sterile prep and drape, management of retractors and instruments. He was present through the critical portions of the case including wound closure, application of sterile dressing and transport of the patient to recovery. ANESTHESIA: General, regional. SPECIMENS: None. DRAINS: None. COMPLICATIONS: None. BLOOD LOSS: 10 mL. PERTINENT HISTORY: This is a 68-year-old female who had sustained a fall down some steps at home after she tried on some new shoes. She landed directly on her left elbow. She had immediate pain and deformity with inability to use the elbow. Transported to [facility]. Radiographs were obtained. She was then placed in a splint and she was admitted to the hospitalist service due to nausea and pain control issues and was then scheduled for surgery after orthopedic consultation. All potential risks, benefits, complications, alternatives, rehab potential for incomplete relief of symptoms, need for further surgery, DVT, PE, , persistent pain, swelling, scarring, weakness, neurovascular injury, wound complications, hardware failure, nonunion, malunion were discussed with the patient. The patient decided to proceed with the procedure as indicated. DESCRIPTION OF PROCEDURE: The patient was taken to the operative suite, placed supine on the operating room table after regional block was performed by the anesthesiologist. The patient was then anesthetized, LMA was placed. Left upper extremity tourniquet was applied over cast padding. Next, left upper extremity was then sterilely prepped and draped in usual fashion, elevated and exsanguinated with Esmarch bandage, tourniquet inflated to 250 mmHg. Next, a 15 blade scalpel was used to make an incision centered over the proximal ulna extending over the olecranon slightly toward the radial aspect of avoid irritation along the central portion of the olecranon and extending just proximal to the olecranon. The incision was deepened through the subcutaneous tissue with scissor dissection. Next, meticulous hemostasis was achieved with electrocautery. The bursa was incised in line with skin incision, noted to be a significant hematoma which was then released and suctioned. Next, the joint was visualized. The periosteal incision was extended distally and proximally adjacent to the triceps insertion. The ulnar nerve was palpated and noted to be within its normal anatomic location and left covered. Next, the fracture site was copiously irrigated with sterile normal saline. Small crumble bits of bone were removed from the fracture site. There was noted to be an obvious dislocation of the radial head. Open radial head reduction was performed under direct visualization and confirmed with fluoroscopic assistance. Next, the intra-articular examination of the joint was performed noting some bony loss of the olecranon, with impaction just beatrice loss of bone due to the degree of comminution, which is significant. There was noted to be an area of shear along the humeral trochlea where the olecranon had impacted and split shearing the articular cartilage from the trochlea. Approximately 30%-40% of the articular cartilage in terms of its thickness was damaged and peeled back. A chondroplasty was performed with a rongeur and a 15 blade scalpel, smoothing the articular cartilage. Next, irrigated until clear and the fracture ends were then provisionally reduced using a bone reduction forceps and multiple 1.1 mm K wires placed under live fluoroscopic assistance. Near anatomic reduction and stable fixation was performed with the K wires followed by application of a Synthes locking periarticular olecranon variable angle plate, first placed provisionally with the sliding nonlocking screw and then the triceps insertion was then split in its midline at the insertion point with a 15 blade scalpel, elevated both medially and laterally allowing the plate to fit directly adjacent to the proximal olecranon. Next, a home-run screw was placed, which was a nonlocking screw from the proximal most aspect of the olecranon extending across the fracture just into the subchondral bone adjacent to the coronoid process. The sliding screw placed first was then loosened slightly allowing the compression screw to compress the fracture. Multiple K wires were loosened and removed to allow transit of the fracture fragment into near anatomic position and alignment under live fluoroscopic assistance. This was then followed by secondary compression nonlocking screw placed at the distal most aspect of the plate to draw it more distally and compress the fracture in near anatomic position. Next, after near anatomic reduction and fixation was achieved, the K wires were removed and multiple locking screws were placed. A singular radial to ulnar screw was placed under direct visualization to stabilize and compress the olecranon fracture. There is no crepitation noted with flexion and extension of the elbow. Full range of motion was noted with full supination and pronation with stable medial and lateral collateral ligaments. Next, a #1 Vicryl was then used to stabilize the loose and fragmented bone on the ulnar aspect of the proximal olecranon. This was held in a near anatomic position. The ulnar nerve was still noted to be within its anatomical location. Next, the wound was copiously irrigated with sterile normal saline until clear and then the triceps split was then closed using buried interrupted #1 Vicryl and then periosteum was closed over the plate with buried interrupted #1 Vicryl. The bursa and dermis were closed using buried interrupted 2-0 Vicryl and skin was closed using nylon sutures. A sterile compressive dressing and a posterior plaster splint were applied and wrapped in Sandro wrap in neutral position. The tourniquet was released, the patient was awakened and taken to recovery in stable condition. Of note, the patient had some motion at the hand, some numbness was noted throughout the hand due to the nerve block performed prior to the surgery. Cap refill was brisk and fingers were warm. I attest to the content of the Intraoperative Record and any orders documented therein. Any exception s are noted below.
[2019-07-03] MEDS ORDERED: bisacodyL 10 MG SUPP PR PRN (16:24)
[2019-07-03] MEDS ORDERED: NALOXONE HCL 0.4 MG/1 ML VIAL/CARP IV PRN (16:24)
[2019-07-03] MEDS ORDERED: MAGNESIUM HYDROXIDE SUSP 30 ML UDC PO PRN (16:24)
[2019-07-03] MEDS ORDERED: METOCLOPRAMIDE HCL INJ 5 MG/ML 2 ML VIAL IV PRN (16:24)
--- NOTE | 2019-07-03 17:10 | XRay Report ---
XR elbow LT 2V CLINICAL HISTORY: post-op COMPARISON STUDY: Left elbow 07/02/2019. FINDINGS: Overlying splint material obscures fine bony detail. There is a cortical plate and screws t ransfixing the olecranon fracture. Alignment is near-anatomic. The hardware is intact. No dislocation . IMPRESSION: Status post internal fixation of an olecranon fracture. No evidence for hardware complic ation. Electronically signed by: Darian Paredes M.D. 07/03/2019 5:09 PM
--- NOTE | 2019-07-03 18:12 | Hospitalist Progress Note ---
Date of Service July 03, 2019 Assessment & Plan (1) Closed fracture dislocation of left elbow: Patient slipped stairs, lost balance and landed on left side, At baseline patient is active, Denies of any dizzy spell lightheadedness prior to fall Possible accidental/mechanical fall Leading to committed left elbow olecranial fracture and dislocation, left elbow radial head dislocation Orthopedics consulted, appreciate input Underwent surgical procedure: Status post ORIF of left atrial fracture, reduction of radial head dislocation Patient has been doing fairly well postoperatively Minimum pain on surgical site As needed pain medication consulted Denies of any fever or chills no shortness of breath discomfort (2) Fracture of rib of left side: Secondary to accidental fall due to losing balance while getting down steps Consecutive management with pain control incentive spirometry (3) Forehead laceration: Secondary to accidental fall, To local wound care No evidence of infection noted CODE STATUS: Full code DVT prophylaxis: Low risk, patient is very active at baseline SCD and teds, patient is asked to ambulate Disposition Discharge home when medically stable Plan of care updated to patient's present at bedside (4) Accidental fall: Subjective Underwent ORIF of left elbow fracture today Patient seen postop Has minimum pain or discomfort, no complaint of shortness of breath no fever chills no chest pain or palpitation or dizzy spell Left elbow pain is currently well controlled Physical Exam Constitutional: WD/WN, vitals as above no acute distress Eyes: PERRL, conjunctivae normal, anicteric sclerae ENMT: external ear and nose normal, oropharynx normal Neck: trachea midline, no thyromegaly Respiratory: normal respiratory effort, lungs clear to auscultation Cardiovascular: RRR, no murmur, no edema Gastrointestinal (Abdomen): normal bowel sounds, soft, nontender, no hepatosplenomegaly Musculoskeletal: Status post left elbow surgery, left arm on sling, Skin: Small skin tear on left forehead, Neurologic: PERRL, EOMI, accommodation nl, no face palsy, no dysarthria Psychiatric: A+Ox3, euthymic affect Results & Data Vital Signs (Past 12 Hours) Vital Signs Temp Pulse Pulse Resp BP Pulse Ox 07/03/19 17:18 36.8 C 100 H 16 93/58 L 97 07/03/19 16:50 36.4 C L 102 H 16 96/61 L 97 07/03/19 15:58 37.0 C 108 H 24 105/65 95 07/03/19 15:45 112 H 24 109/67 94 07/03/19 15:35 108 H 24 107/70 100 07/03/19 15:25 111 H 24 104/70 100 07/03/19 15:19 37.6 C H 110 H 16 106/67 100 07/03/19 07:24 37.2 C 82 16 91/54 L (1) Closed fracture dislocation of left elbow Encounter type: initial encounter Qualified Code(s): S42.402A - Unspecified fracture of lower end of left humerus, initial encounter for closed fracture (2) Fracture of rib of left side Encounter type: initial encounter Fracture type: closed Rib fracture type: single rib Qualified Code(s): S22.32XA - Fracture of one rib, left side, initial encounter for closed fracture (3) Forehead laceration Encounter type: initial encounter Qualified Code(s): S01.81XA - Laceration without foreign body of other part of head, initial encounter (4) Accidental fall Encounter type: initial encounter Qualified Code(s): W19.XXXA - Unspecified fall, initial encounter
--- NOTE | 2019-07-03 19:43 | Emergency Department Note ---
ED Provider Note I was asked by Dr. Hunt to repair this patient's 2.5 cm full-thickness laceration near the left eyebrow. Verbal consent was obtained to perform the procedure. Using sterile technique the wound was cleaned with Betadine. The area was sterilely draped. 4 ml of 1% buffered lidocaine with epinephrine was used to anesthetize the laceration. Once the patient was anesthetized, the wound was copiously irrigated under pressure with sterile saline. The wound was explored and there were no deep structures injured such as tendons, bone, or significant blood vessels. The laceration was repaired using 7 simple interrupted 6-0 nylon sutures with the wound edges being well approximated. The patient tolerated the procedure well. Hemostasis was achieved. The area was cleaned with sterile saline and dressed with bacitracin ointment and bandage. 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 Tender Required: No Beliefs That Will Affect Care: None Current Living Situation: Spouse Other Information That Helps Us Care for You: No Feels Safe at Home: No Is there a partner from a previous relationship who is making you feel unsafe now?: No Any Concerns about Your Family Situation: No Would You Like to Speak to Someone About Your Situation: No Safety Concerns: Feels Safe At This Time Smoking Status: Former smoker Tobacco Type: cigarettes ; Smoking End Date: 1992 ; Hx Alcohol Use: Yes Alcohol type: beer and wine Hx Substance Use: No Results & Data Vital Signs Vital Signs - 24 hr 07/02/19 20:22 07/02/19 21:21 07/02/19 22:06 Pulse Rate [Finger] 86 78 76 Respiratory Rate 14 12 14 Blood Pressure [Right Arm] 82/59 L 96/56 L 99/51 L Blood Pressure Mean [Right Arm] 66 69 67 Pulse Oximetry 99 99 100 Oxygen Delivery Method Room Air Room Air Room Air Laboratory Data Result diagrams: 07/03/19 05:11 07/03/19 05:11 Administered Medications Acetaminophen (Tylenol) 650 mg PO Q4H PRN PRN Reason: pain/fever Stop: 08/01/19 23:10 Last Admin: 07/02/19 23:30 Dose: 650 mg Documented by: [id number] Ac[facility]aminophen ([facility]) 1,000 mg in 100 mls @ 400 mls/hr IV Q8H PRN PRN Reason: Pain Stop: 08/01/19 23:10 Last Infusion: 07/03/19 07:49 Dose: 0 mls/hr Documented by: [id number] Admin: 07/03/19 07:18 Dose: 400 mls/hr Documented by: [id number] Sodium Chloride (Nss 1000ml) 1,000 mls @ 100 mls/hr IV .Q10H GIOVANY Stop: 07/04/19 06:00 Last Admin: 07/03/19 17:59 Dose: 100 mls/hr Documented by: [id number] Multivitamins/Minerals (Multivitamin W/ Minerals Tab) 1 tab PO DAILY GIOVANY Stop: 08/02/19 08:59 Last Admin: 07/03/19 08:45 Dose: Not Given Documented by: [id number] Vitamin D (Vitamin D3) 400 units PO BID GIOVANY Stop: 08/02/19 08:59 Last Admin: 07/03/19 08:45 Dose: Not Given Documented by: [id number] Discontinued Medications Hydrocodone Bitart/Acetaminophen ([place] 5/325mg Homepack) 1 homepack PO UD ONE Stop: 07/02/19 19:08 Last Admin: 07/02/19 20:22 Dose: 1 homepack Documented by: [id number] Hydromorphone HCl (Dilaudid) 0.5 mg IV Q15M PRN PRN Reason: Pain Stop: 07/16/19 16:09 Last Admin: 07/02/19 16:38 Dose: 0.5 mg Documented by: [id number] Sodium Chloride (Nss 1000ml) 500 mls @ 999 mls/hr IV .Q31M ONE Stop: 07/02/19 21:48 Last Infusion: 07/02/19 21:55 Dose: 0 mls/hr Documented by: [id number] Admin: 07/02/19 21:24 Dose: 999 mls/hr Documented by: [id number] Sodium Chloride (Nss 1000ml) 1,000 mls @ 100 mls/hr IV .Q10H GIOVANY Stop: 07/03/19 11:00 Last Admin: 07/03/19 10:38 Dose: 100 mls/hr Documented by: [id number] Infusion: 07/03/19 10:36 Dose: 100 mls/hr Documented by: [id number] Infusion: 07/03/19 10:35 Dose: 100 mls/hr Documented by: [id number] Infusion: 07/03/19 02:17 Dose: 100 mls/hr Documented by: [id number] Admin: 07/02/19 23:31 Dose: 75 mls/hr Documented by: [id number] Cefazolin Sodium (Ancef 2000mg) 2,000 mg in 15 mls @ 3.75 mls/min IV PREOP ONE Stop: 07/03/19 13:20 Last Admin: 07/03/19 13:09 Dose: 3.75 mls/min Documented by: [id number] Lidocaine (Let Gel 4%/1:100/0.5%) 1 ea EXT NOW STA Stop: 07/02/19 16:11 Last Admin: 07/02/19 16:42 Dose: 1 ea Documented by: [id number] Lidocaine/Epinephrine (Buffered Xylocaine/Epinephrine 1%) Confirm Administered Dose 20 ml .ROUTE .STK-MED ONE Stop: 07/02/19 18:25 Last Admin: 07/02/19 18:26 Dose: 20 ml Documented by: [id number] Metoclopramide HCl (Reglan) 5 mg IV ONE ONE Stop: 07/02/19 21:22 Last Admin: 07/02/19 21:26 Dose: 5 mg Documented by: [id number] Ondansetron HCl (Zofran) 4 mg IV NOW STA Stop: 07/02/19 16:11 Last Admin: 07/02/19 16:38 Dose: 4 mg Documented by: [id number] Ondansetron HCl (Zofran Odt 4mg Home Pack) 1 homepack PO NOW ONE Stop: 07/02/19 19:08 Last Admin: 07/02/19 20:22 Dose: 1 homepack Documented by: [id number] Ondansetron HCl (Zofran) 4 mg IV NOW STA Stop: 07/02/19 20:07 Last Admin: 07/02/19 20:22 Dose: 4 mg Documented by: [id number] Oxycodone/Acetaminophen (Percocet 5mg/325mg) 1 tab PO Q6H PRN PRN Reason: Pain Stop: 07/17/19 02:03 Last Admin: 07/03/19 02:17 Dose: 1 tab Documented by: [id number] Perflutren Lipid Microsphere (Definity) 2 ml IV ONCE ONE Stop: 07/03/19 11:50 Last Admin: 07/03/19 11:49 Dose: 2 ml Documented by: [id number] Discharge Plan Visit Data *Final* Discharge Date/Time: 07/02/19 23:06 Chief Complaint: Fall Stated Complaint: HURT RIBS ED Provider: Anjel Hunt Discharge Problem: Closed fracture dislocation of left elbow, Fracture of rib of left side, Forehead laceration, Contusion of left thigh, Accidental fall Patient Disposition: Admitted As Inpatient Discharge Instructions Interventions: ED Discharge Assessment Last Done: 07/02/19 23:06 Discharge Problem: Closed fracture dislocation of left elbow Qualifiers: Encounter type: initial encounter Qualified Code(s): S42.402A - Unspecified fracture of lower end of left humerus, initial encounter for closed fracture Fracture of rib of left side Qualifiers: Encounter type: initial encounter Rib fracture type: single rib Fracture type: closed Qualified Code(s): S22.32XA - Fracture of one rib, left side, initial encounter for closed fracture Forehead laceration Qualifiers: Encounter type: initial encounter Qualified Code(s): S01.81XA - Laceration without foreign body of other part of head, initial encounter Contusion of left thigh Qualifiers: Encounter type: initial encounter Qualified Code(s): S70.12XA - Contusion of left thigh, initial encounter Accidental fall Qualifiers: Encounter type: initial encounter Qualified Code(s): W19.XXXA - Unspecified fall, initial encounter
[2019-07-03] MEDS: ACETAMINOPHEN 325 MG TAB PO PRN (20:28)
[2019-07-03] MEDS: SENNA 8.6 MG TAB PO SCH (20:30)
[2019-07-03] MEDS: DOCUSATE SODIUM 100 MG CAP PO SCH (20:31)
[2019-07-03] MEDS: CEFAZOLIN 1000MG 1,000 MG/7.5 ML SYR IV SCH (20:31)
[2019-07-04] MEDS: OXYCODONE/ACETAMINOPHEN 5mg/325mg TAB PO PRN ×2 (00:08→04:06)
[2019-07-04] MEDS: ACETAMINOPHEN 1,000 MG/100 ML VIAL IV PRN (02:20)
[2019-07-04] MEDS ORDERED: KETOROLAC TROMETHAMINE 15 MG/ML VIAL IV ONE ×2 (03:31→09:44)
[2019-07-04] MEDS: SODIUM CHLORIDE 0.9% 1000ML 1,000 ML IV SCH (03:36)
[2019-07-04] MEDS: CEFAZOLIN 1000MG 1,000 MG/7.5 ML SYR IV SCH (04:05)
[2019-07-04 05:39] LABS: Hematocrit (blood only) 23.3 % (37-47); Hemoglobin 7.8 g/dL (12.0-16.0); Mean Corpuscular Hemoglobin 32.1 pg (25-34); Mean Corpuscular Hgb Conc 33.5 g/dL (32-36); Mean Corpuscular Volume 95.9 fL (80-100); Mean Platelet Volume 9.5 fL (7.4-10.4); Platelet Count 149 K/uL (130-400); RDW Coefficient of Variation 12.7 % (11.5-14.5); RDW Standard Deviation 44.1 fL (36.4-46.3); Red Blood Count 2.43 M/uL (4.2-5.4); White Blood Count 6.93 K/uL (4.8-10.8)
[2019-07-04 06:12] LABS: Hematocrit (blood only) 22.5 % (37-47); Hemoglobin 7.5 g/dL (12.0-16.0)
[2019-07-04 06:14] LABS: BUN Creatinine Ratio 16.9 (10-20); Calcium 7.7 mg/dl (8.5-10.1); Creatinine Clr Calc Pharmacy 66.8 ml/min; Est GFR (African American) 99.7; Est GFR (Non-African American) 86.1; Potassium 4.1 mmol/L (3.5-5.1)
[2019-07-04] MEDS ORDERED: SODIUM CHLORIDE 0.9% 250 ML IV PRN (06:26)
[2019-07-04] MEDS ORDERED: FUROSEMIDE 20 MG in SYRINGE 0 ML IV SCH (06:30)
[2019-07-04] MEDS ORDERED: ACETAMINOPHEN 325 MG TAB PO SCH (06:30)
--- NOTE | 2019-07-04 08:02 | Anesthesiology Progress Note ---
Date of Service July 04, 2019 Anesthesia Post Procedure Vital Signs Vital Signs: Temp Pulse Pulse Resp BP Pulse Ox 07/04/19 07:22 36.7 C 91 H 16 92/61 L 94 07/04/19 02:55 37.3 C 93 H 18 94/61 L 94 07/03/19 23:24 37.3 C 97 H 16 95/60 L 94 07/03/19 19:20 36.7 C 97 H 16 94/60 L 97 07/03/19 18:26 36.6 C 99 H 16 91/59 L 98 07/03/19 17:18 36.8 C 100 H 16 93/58 L 97 07/03/19 16:50 36.4 C L 102 H 16 96/61 L 97 07/03/19 16:20 36.6 C 108 H 18 100/65 94 07/03/19 15:58 37.0 C 108 H 24 105/65 95 07/03/19 15:45 112 H 24 109/67 94 07/03/19 15:35 108 H 24 107/70 100 07/03/19 15:25 111 H 24 104/70 100 07/03/19 15:19 37.6 C H 110 H 16 106/67 100 Notes Mental Status: alert / awake / arousable and participated in evaluation Patient Amnestic to Procedure: Yes Nausea / Vomiting: adequately controlled Pain: adequately controlled Airway Patency, RR, SpO2: stable & adequate BP & HR: stable & adequate Hydration State: stable & adequate Neuraxial Anesthesia: sensory block resolved Anesthetic Complications: no major complications apparent
[2019-07-04] MEDS: DOCUSATE SODIUM 100 MG CAP PO SCH ×2 (12:52→20:08)
[2019-07-04] MEDS: MULTIVITAMIN TAB PO SCH (12:52)
[2019-07-04] MEDS: CHOLECALCIFEROL (VITAMIN D) 400 UNITS TABLET PO SCH ×2 (12:52→20:08)
[2019-07-04] MEDS: CEROVITE ADV FORMULA TAB PO SCH (12:52)
[2019-07-04] MEDS: OXYCODONE HCL IR 5 MG TAB (IMMEDIATE RELEASE) PO PRN ×3 (14:05→22:47)
--- NOTE | 2019-07-04 18:13 | Hospitalist Progress Note ---
Date of Service July 04, 2019 Assessment & Plan (1) Closed fracture dislocation of left elbow: Status post ORIF of left comminuted olecranon fracture, open reduction of dislocated radial head postoperative day 1 Recovering well Patient slipped stairs, lost balance and landed on left side, At baseline patient is active, Denies of any dizzy spell lightheadedness prior to fall Possible accidental/mechanical fall Leading to committed left elbow olecranial fracture and dislocation, left elbow radial head dislocation Orthopedics consulted, appreciate input Underwent surgical procedure: Status post ORIF of left atrial fracture, reduction of radial head dislocation Patient has been doing fairly well postoperatively Minimum pain on surgical site As needed pain medication consulted Denies of any fever or chills no shortness of breath discomfort Acute blood loss anemia Secondary to postoperative status, due to rafaela-and postoperative blood loss Globin drop 9.37.8, repeat 7.5 Patient reports of feeling dizzy and lightheaded Status post 2 units of PRBC transfusion Repeat H&H in a.m. (2) Fracture of rib of left side: Secondary to accidental fall due to losing balance while getting down steps Consecutive management with pain control incentive spirometry (3) Forehead laceration: Secondary to accidental fall, To local wound care No evidence of infection noted CODE STATUS: Full code DVT prophylaxis: Low risk, patient is very active at baseline SCD and teds, patient is asked to ambulate Disposition Discharge home when medically stable (4) Accidental fall: Subjective Feels dizzy and lightheaded this morning, Hemoglobin noted to be 7.5, acute blood loss anemia postoperatively Anemia hemoglobin 9.39.5 Physical Exam Constitutional: WD/WN, vitals as above no acute distress Eyes: PERRL, conjunctivae normal, anicteric sclerae ENMT: external ear and nose normal, oropharynx normal Neck: trachea midline, no thyromegaly Respiratory: normal respiratory effort, lungs clear to auscultation Cardiovascular: RRR, no murmur, no edema Gastrointestinal (Abdomen): normal bowel sounds, soft, nontender, no hepatosplenomegaly Neurologic: PERRL, EOMI, accommodation nl, no face palsy, no dysarthria Psychiatric: A+Ox3, euthymic affect Results & Data Vital Signs (Past 12 Hours) Vital Signs Temp Pulse Pulse Resp BP BP Pulse Ox 07/04/19 17:43 37.4 C 84 16 106/69 96 07/04/19 16:58 37.4 C 83 16 99/64 L 97 07/04/19 16:00 37.3 C 83 16 105/67 97 07/04/19 15:14 37.3 C 85 16 113/71 98 07/04/19 14:45 37.3 C 76 16 113/73 98 07/04/19 14:29 36.9 C 89 16 107/66 98 07/04/19 14:00 36.6 C 87 16 115/76 99 07/04/19 13:05 37.3 C 80 18 104/70 97 07/04/19 12:05 37.3 C 86 18 101/68 96 07/04/19 11:36 36.3 C L 83 18 104/70 97 07/04/19 11:06 36.8 C 80 16 115/74 97 07/04/19 10:50 36.8 C 82 18 109/71 96 07/04/19 10:35 36.8 C 84 18 114/75 97 07/04/19 07:22 36.7 C 91 H 16 92/61 L 94 (1) Closed fracture dislocation of left elbow Encounter type: initial encounter Qualified Code(s): S42.402A - Unspecified fracture of lower end of left humerus, initial encounter for closed fracture (2) Fracture of rib of left side Encounter type: initial encounter Fracture type: closed Rib fracture type: single rib Qualified Code(s): S22.32XA - Fracture of one rib, left side, initial encounter for closed fracture (3) Forehead laceration Encounter type: initial encounter Qualified Code(s): S01.81XA - Laceration without foreign body of other part of head, initial encounter (4) Accidental fall Encounter type: initial encounter Qualified Code(s): W19.XXXA - Unspecified fall, initial encounter
[2019-07-04] MEDS: SENNA 8.6 MG TAB PO SCH (20:08)
[2019-07-05] MEDS: ACETAMINOPHEN 325 MG TAB PO PRN ×2 (01:52→05:49)
[2019-07-05] MEDS: OXYCODONE HCL IR 5 MG TAB (IMMEDIATE RELEASE) PO PRN ×2 (02:28→07:42)
[2019-07-05 05:31] LABS: Hematocrit (blood only) 27.1 % (37-47); Hemoglobin 9.5 g/dL (12.0-16.0); Mean Corpuscular Hemoglobin 31.1 pg (25-34); Mean Corpuscular Hgb Conc 35.1 g/dL (32-36); Mean Corpuscular Volume 88.9 fL (80-100); Mean Platelet Volume 8.8 fL (7.4-10.4); Platelet Count 143 K/uL (130-400); RDW Standard Deviation 55.3 fL (36.4-46.3); Red Blood Count 3.05 M/uL (4.2-5.4); White Blood Count 8.33 K/uL (4.8-10.8)
[2019-07-05] MEDS: DOCUSATE SODIUM 100 MG CAP PO SCH (07:43)
[2019-07-05] MEDS: CEROVITE ADV FORMULA TAB PO SCH (07:43)
[2019-07-05] MEDS: CHOLECALCIFEROL (VITAMIN D) 400 UNITS TABLET PO SCH (07:43)
[2019-07-05] MEDS: MULTIVITAMIN TAB PO SCH (07:43)
--- NOTE | 2019-07-05 08:11 | Orthopedic Progress Note ---
Date of Service July 05, 2019 Assessment & Plan (1) Closed fracture dislocation of left elbow: Postop day 2 status post ORIF left olecranon fracture. Patient is doing well orthopedically. We discussed that she should get up more this morning and ambulate in the hallways. No further treatment needed orthopedically. Patient stable for discharge from our standpoint. Plan to follow-up with Dr. Clemons in 10 days. Instructions placed in the discharge section of the EMR. Pain prescription placed in chart. Subjective Postop day 2 status post ORIF left olecranon fracture Patient is sitting up in her bed and is dressed. She looks much better than yesterday. She was dealing with nausea and also a low hemoglobin which she was transfused PRBCs. Currently pain is controlled. She is in a much better frame of mind. She denies nausea. She has no other complaints at this time. Physical Exam Physical Exam: Splint/dressing is clean ,dry, and intact. She looks like she has a little less swelling in the fingers today. She has good range of motion. Sensation is intact. Neurovascular is intact. Results & Data Vital Signs (Past 12 Hours) Vital Signs Temp Pulse Pulse Resp BP Pulse Ox 07/05/19 07:16 36.7 C 78 16 109/72 07/05/19 03:55 81 88/56 L 07/04/19 23:30 36.9 C 74 16 86/58 L 94 Laboratory Results Laboratory Results WBC 8.33 K/uL (4.8-10.8) 07/05/19 05:17 RBC 3.05 M/uL (4.2-5.4) L 07/05/19 05:17 Hgb 9.5 g/dL (12.0-16.0) L 07/05/19 05:17 Hct 27.1 % (37-47) L 07/05/19 05:17 MCV 88.9 fL (80-100) D 07/05/19 05:17 MCH 31.1 pg (25-34) 07/05/19 05:17 MCHC 35.1 g/dL (32-36) 07/05/19 05:17 RDW Std Deviation 55.3 fL (36.4-46.3) H 07/05/19 05:17 RDW Coeff of Don 17.0 % (11.5-14.5) H 07/05/19 05:17 Plt Count 143 K/uL (130-400) 07/05/19 05:17 MPV 8.8 fL (7.4-10.4) 07/05/19 05:17 Immature Gran % (Auto) 0.1 % 07/03/19 05:11 Neut % (Auto) 72.5 % 07/03/19 05:11 Lymph % (Auto) 20.8 % 07/03/19 05:11 [place] % (Auto) 6.5 % 07/03/19 05:11 Eos % (Auto) 0.0 % 07/03/19 05:11 Baso % (Auto) 0.1 % 07/03/19 05:11 Immature Gran # (Auto) 0.01 K/uL (0.00-0.02) 07/03/19 05:11 Neut # (Auto) 7.23 K/uL (1.4-6.5) H 07/03/19 05:11 Lymph # (Auto) 2.08 K/uL (1.2-3.4) 07/03/19 05:11 [place] # (Auto) 0.65 K/uL (0.11-0.59) H 07/03/19 05:11 Eos # (Auto) 0.00 K/uL (0-0.5) 07/03/19 05:11 Baso # (Auto) 0.01 K/uL (0-0.2) 07/03/19 05:11 Sodium 139 mmol/L (136-145) 07/04/19 05:10 Potassium 4.1 mmol/L (3.5-5.1) 07/04/19 05:10 Chloride 108 mmol/L (98-107) H 07/04/19 05:10 Carbon Dioxide 23 mmol/L (21-32) 07/04/19 05:10 Anion Gap 8.0 (3-11) 07/04/19 05:10 BUN 12 mg/dl (7-18) D 07/04/19 05:10 Creatinine 0.72 mg/dl (0.6-1.2) 07/04/19 05:10 Est Cr Clr Drug Dosing 66.8 ml/min 07/04/19 05:10 Est GFR ( Amer) 99.7 07/04/19 05:10 Est GFR (Non-Af Amer) 86.1 07/04/19 05:10 BUN/Creatinine Ratio 16.9 (10-20) 07/04/19 05:10 Glucose 106 mg/dl (70-99) H 07/04/19 05:10 Calcium 7.7 mg/dl (8.5-10.1) L 07/04/19 05:10 Magnesium 1.9 mg/dl (1.8-2.4) 07/03/19 05:11 TSH 3.820 uIu/ml (0.300-4.500) 07/03/19 05:11 Blood Type O Positive 07/03/19 08:59 Blood Type Recheck O Positive 07/04/19 05:10 Antibody Screen NEGATIVE 07/03/19 08:59 Crossmatch See Detail 07/03/19 08:59 (1) Closed fracture dislocation of left elbow Encounter type: initial encounter Qualified Code(s): S42.402A - Unspecified fracture of lower end of left humerus, initial encounter for closed fracture
--- NOTE | 2019-07-05 08:19 | Orthopedic Progress Note ---
Date of Service July 04, 2019 (progress note for yesterday) Assessment & Plan (1) Closed fracture dislocation of left elbow: Postop day 1 status post ORIF left olecranon fracture. Medicine service planning for transfusion today. Patient may be up as tolerated. Nonweightbearing on the left upper extremity. Elevation of the left elbow on one pillow when at rest. Ice regularly. Pain management as written Subjective Postop day 1 status post left ORIF olecranon fracture Patient lying in bed. She is awake and alert. She is complaining of some nausea this morning as well as feeling wiped out and tired. She had a drop in her hemoglobin and plans are for PRBC transfusion per medicine service. She denies any overt pain at this time. No other complaints. Physical Exam Physical Exam: Splint/dressing was clean dry and intact. Notable swelling in the fingers but sensation intact. Neurovascular intact. Capillary refill less than 2 seconds. She has good range of motion of her fingers. Results & Data Vital Signs (Past 12 Hours) Vital Signs Temp Pulse Pulse Resp BP Pulse Ox 07/05/19 07:16 36.7 C 78 16 109/72 07/05/19 03:55 81 88/56 L 07/04/19 23:30 36.9 C 74 16 86/58 L 94 (1) Closed fracture dislocation of left elbow Encounter type: initial encounter Qualified Code(s): S42.402A - Unspecified fracture of lower end of left humerus, initial encounter for closed fracture
--- NOTE | 2019-07-05 10:32 | Discharge Summary ---
Date of Service July 05, 2019 Admission HPI Per Admitting Provider DICTATED BY: Florentin Pollock MD DATE OF ADMISSION: 07/02/2019 CHIEF COMPLAINT: Status post fall and left elbow fracture. HISTORY OF PRESENT ILLNESS: This is a 68-year-old female with past medical history significant for hyperlipidemia, not on any medications, hypothyroidism, not on medication and a history of diverticulosis of colon, who lives with her , fell at home. She was going down basement steps. She was in new boots which she was not accustomed to. She slipped and fell about possible 5-6 steps. No loss of consciousness. After some time, she was able to get up and had significant pain and came to the Emergency Room and found to have mild left 5th rib fracture laterally and also comminuted, distracted and rotated olecranon fracture and anterior subluxation of the radial head and proximal ulna. The patient has been placed on a sling and Orthopedics was notified and they recommended to follow up as outpatient, but the patient is allergic to codeine, she states she gets very sick with nausea and vomiting, but she had it long time back. In the Emergency Room, IV Dilaudid was given which caused again significant nausea, so we are called to observe the patient overnight. The patient currently states the nausea is improved. She has some chest soreness from her fall. Denies any shortness of breath. No cough. No recent fever or chills. Currently, no headache. No blurred vision. No earaches. No runny nose. No abdominal pain. Normal bowel and bladder movements. No hematuria or burning micturition. No black stools or hematochezia. No swelling in the legs except for some scrapings on her left lower extremity from the fall. No rash. Otherwise, before the fall, her ambulation was okay. Lives with her . Principal Diagnosis Fall, left elbow fracture status post surgery Discharge Exam Constitutional WD/WN, vitals as above no acute distress Eyes PERRL, conjunctivae normal, anicteric sclerae ENMT external ear and nose normal, oropharynx normal Neck trachea midline, no thyromegaly Respiratory normal respiratory effort, lungs clear to auscultation Cardiovascular RRR, no murmur, no edema Gastrointestinal (Abdomen) normal bowel sounds, soft, nontender, no hepatosplenomegaly Neurologic PERRL, EOMI, accommodation nl, no face palsy, no dysarthria Psychiatric A+Ox3, euthymic affect Discharge Data Allergies Allergy/AdvReac Type Severity Reaction Status Date / Time codeine AdvReac Vomiting Unverified 07/02/19 17:34 diphenhydramine AdvReac Vomiting Unverified 07/02/19 17:34 shellfish derived AdvReac Vomiting Unverified 07/02/19 17:33 Consultations 07/02/19 21:18 ED Decision to Admit Stat 07/02/19 23:11 Consult Case Management - Discharge Planning Routine 07/03/19 08:00 Consult Orthopedic Surgery Routine 07/03/19 16:24 Consult Case Management - Discharge Planning Routine Procedures Performed Operation Date: 07/03/19 08:05 Actual Procedures p Open Reduction Internal Fixation comminuted left olecranon fracture. Open reduction radial head dislocation.(Left) - Jefferson Clemons, Ordered Studies 07/02/19 21:18 CT head/brain wo con Stat 07/03/19 08:13 FL elbow LT 2V Routine FL fluoroscopy <1hr Routine 07/03/19 12:20 US - OR guided needle placemen Routine Hospital Course (1) Closed fracture dislocation of left elbow: Status post ORIF of left comminuted olecranon fracture, open reduction of dislocated radial head postoperative day #2 Recovering well Left elbow pain has improved, Evaluated by orthopedics team today, stable to be discharged home, Orthopedic follow-up in 7-10 days Patient slipped stairs, lost balance and landed on left side, At baseline patient is active, Denies of any dizzy spell lightheadedness prior to fall Possible accidental/mechanical fall Leading to committed left elbow olecranial fracture and dislocation, left elbow radial head dislocation Orthopedics consulted, appreciate input Underwent surgical procedure: Status post ORIF of left atrial fracture, reduction of radial head dislocation Acute blood loss anemia Corrected, given 2 units of PRBC transfusion, hemoglobin improved to 9.7 approximate baseline To have hemoglobin drop 9.37.8, repeat 7.5 Secondary to postoperative status, due to rafaela-and postoperative blood loss Patient reports of feeling dizzy and lightheaded Status post 2 units of PRBC transfusion Patient reports of feeling much better today, no weakness fatigue or dizzy spell lightheadedness Patient has baseline chronic anemia, Had recent screening colonoscopy which was within normal limit Asked to continue iron supplement Repeat blood work: CBC in 1 week Patient may need further anemia work-up at clinic if hemoglobin noted to be persistently low Hospital follow-up scheduled with patient's family physician on 07/08/2019 (2) Fracture of rib of left side: Secondary to accidental fall due to losing balance while getting down steps Consecutive management with pain control incentive spirometry (3) Forehead laceration: Secondary to accidental fall, To local wound care No evidence of infection noted CODE STATUS: Full code DVT prophylaxis: Low risk, patient is very active at baseline SCD and teds, patient is asked to ambulate Disposition Stable to be discharged home today (4) Accidental fall: Total Time Total Time Spent Total Time Spent (In Minutes): Approximately 40 minutes Total Time Includes: Examination of the Patient, Discharge Planning, Medication Reconciliation and Communication With Other Providers Discharge Plan Discharge Items Patient Disposition: Home - Self-Care Reason For Visit: FALL,LEFT ELBOW FX,HYPOTENSION Discharge Diagnosis: Left Olecranon Fracture Activity: As commented below Non-emergency contact: Surgeon Call non-emergency contact if: your pain is not controlled, your temperature is above 101.5, your wound has increased redness and your wound has increased drainage Follow-up/Referrals: Jefferson Clemons DO [Surgeon] - Jia Burger MD [Primary Care Provider] - 07/08/19 12:45 pm Diet: Regular Ambulatory Orders: Complete Blood Count no Diff (Routine) Timeframe: [id number] Location: Determined by Patient Ordered By: Shanti Peña Attending Provider Instructions: Hospital follow-up with family physician Dr Burger on 07/08/2019 at 12:45 PM Orthopedics follow-up with Dr. Clemons in 7-10 days, please call office to schedule appointment you are noted to have chronic anemia ( low hemoglobin /red cell count ) which can cause fatigue /poor energy /shortness of breath you are given 2 units of Blood products for the blood loss during surgery repeat Lab work : CBC is ordered for Thursday07/08/2019 please take Iron supplements Casey Senior Embedded Software Engineer Provider Instructions: Do not bear weight on the left elbow. Keep splint/dressing clean and dry. Continue to exercise your fingers regularly. Keep the left arm elevated on a pillow when at rest. Ice regularly for the next 24 hours, then as needed. Use sling at all times when ambulating. You may loosen the sling as needed when at rest. If the gunnar bandage feels too tight, you may unwrap the gunnar bandage and rewrap it loosely. Call the office if you have fever 101.5 or greater; increased swelling, increased pain. [phone] Clemons or his PA in 10 days from the day of surgery. Please call for appointment. [phone] Pending Studies at Discharge: Yes Studies:: Lab work: CBC/complete blood count on 07/08/2019 Stand-Alone Forms: My [facility], Opioid Pain Management Medications and DC Order Prescriptions: New oxycodone 5 mg Tablet 5 mg PO Q4H PRN (Reason: pain) Qty: 18 RF: 0 acetaminophen 500 mg capsule 1,000 mg PO Q8H 3 Days Qty: 18 RF: 0 PureFe Plus 106 mg iron- 1 mg capsule 1 cap PO DAILY Qty: 30 RF: 6 Continued multivitamin with minerals [Multiple Vitamin-Minerals] Tablet 1 tab PO DAILY RF: 0 cholecalciferol (vitamin D3) 400 unit Tablet 400 unit PO BID RF: 0 garlic Tablet 1 tab PO TID RF: 0 Discontinued omega 8-tlj-jtj-fish oil [Fish Oil] 1,000 mg (120 mg-180 mg) Capsule 1 cap PO TID RF: 0 Discharge Orders: Discharge Order (Routine); Ordered 07/05/19 Ordered By: Shanti Barajas/Other Patient Handouts: Anemia Admission Data Admit Date/Time: 07/02/19 22:47 Attending Provider: Shanti Quiroz Admit Provider: Florentin Pollock Primary Care Provider: Jia Burger Other Providers: Shanti Quiroz ; Florentin Pollock ; Jefferson Clemons
== END 2019-07-05 11:17 | disposition home or self-care (01) | DRG 511 ==
LOC: ED 15:29 → SUATTDRO 22:47 → 3N 22:47
DX: S01.112A Laceration without foreign body of left eyelid and periocular area, initial encounter; E78.5 Hyperlipidemia, unspecified; Z87.891 Personal history of nicotine dependence; E03.9 Hypothyroidism, unspecified; Z88.5 Allergy status to narcotic agent; W10.9XXA Fall (on) (from) unspecified stairs and steps, initial encounter; D62 Acute posthemorrhagic anemia; S22.32XA Fracture of one rib, left side, initial encounter for closed fracture; S52.022A Displaced fracture of olecranon process without intraarticular extension of left ulna, initial encounter for closed fracture

== ENCOUNTER 2019-11-17 02:00 | Inpatient (IN) ==
[2019-11-17 02:51] LABS: Basophils # (auto) 0.01 K/uL (0-0.2); Basophils % (auto) 0.1 %; Eosinophils # (auto) 0.01 K/uL (0-0.5); Eosinophils % (auto) 0.1 %; Hematocrit (blood only) 39.6 % (37-47); Hemoglobin 13.2 g/dL (12.0-16.0); Immature Granulocytes # (auto) 0.02 K/uL (0.00-0.02); Immature Granulocytes % (auto) 0.2 %; Lymphocytes # (auto) 0.95 K/uL (1.2-3.4); Lymphocytes % (auto) 9.5 %; Mean Corpuscular Hemoglobin 31.7 pg (25-34); Mean Corpuscular Hgb Conc 33.3 g/dL (32-36); Monocytes # (auto) 0.19 K/uL (0.11-0.59); Monocytes % (auto) 1.9 %; Neutrophils # (auto) 8.77 K/uL (1.4-6.5); Neutrophils % (auto) 88.2 %; Platelet Count 336 K/uL (130-400); RDW Coefficient of Variation 11.7 % (11.5-14.5); RDW Standard Deviation 40.2 fL (36.4-46.3); Red Blood Count 4.17 M/uL (4.2-5.4); White Blood Count 9.95 K/uL (4.8-10.8)
[2019-11-17] MEDS ORDERED: KETOROLAC TROMETHAMINE 15 MG/ML VIAL IV STA (02:58)
[2019-11-17] MEDS ORDERED: SODIUM CHLORIDE 0.9% 500 ML IV ONE (02:58)
[2019-11-17 03:08] LABS: Albumin Level 3.3 gm/dl (3.4-5.0); BUN Creatinine Ratio 24.6 (10-20); Calcium 9.3 mg/dl (8.5-10.1); Creatinine Clr Calc Pharmacy 48.9 ml/min; Est GFR (African American) 70.8; Est GFR (Non-African American) 61.1; Potassium 4.2 mmol/L (3.5-5.1)
[2019-11-17 03:11] LABS: Albumin Globulin Ratio 0.7 (0.9-2); Bilirubin,Total 0.5 mg/dl (0.2-1); Globulin 4.5 gm/dl (2.5-4.0); Total Protein 7.8 gm/dl (6.4-8.2)
[2019-11-17 03:17] LABS: Appearance Urine Cloudy (Clear); Bacteria Urine Automated Negative (Negative); Bilirubin Urine Negative (Negative); Blood Urine 2+ (Negative); Color Urine Yellow; Glucose Urine UA Negative (Negative); Ketones Urine 2+ (Negative); Leukocyte Esterase Urine Trace (Negative); Nitrite Urine Negative (Negative); Protein Urine 1+ (Negative); Urobilinogen Urine Negative (Negative); pH Urine 5.5 (4.5-7.5)
[2019-11-17] MEDS ORDERED: PIPERACILLIN/TAZOBACTAM 3.375 GM in DEXTROSE 5% 100 ML/100 ML BAG IV STA ×2 (04:11→05:59)
[2019-11-17] MEDS ORDERED: PIPERACILL/TAZOBAC CONSULT ACTIVE PRN ×3 (04:11→10:27)
[2019-11-17] MEDS: SODIUM CHLORIDE 0.9% 500 ML IV SCH ×2 (05:14→12:09)
--- NOTE | 2019-11-17 05:46 | Surgery Consultation ---
Date of Consultation November 17, 2019 Assessment & Plan (1) Perforation of sigmoid colon due to diverticulitis: pt is a 69 year-old female who presents to Er with 2 days history acute abdominal pain worse [address] scan- perforated sigmoid diverticulitis IMP: perforated sigmoid diverticulitis, peritonitis Plan, I recommend to do emergent exploratory laparotomy, possible bowel resection, stoma, D/W benefits, risks and alternatives of the surgery, the risks - infection, bleeding, sepsis, multiple organs failure, anastomotic leak, , pt and her understood, they agree with the surgery, I answered all questions, Zosyn 3.375gm iv now (2) Peritonitis: History of Present Illness History of Present Illness CC: acute abdominal pain, with nausea and vomiting, HPI: pt is a 69 year-old female who presents to ER with 2 days history left side abdominal pain, worse abdominal pain 4 hours ago with nausea and vomiting, Fever, chills, pt did not check her temp at that time. the pain is 7/10, located at whole abdomen, last bm yesterday, pt denies diarrhea, no bloody stool, pt had fall at home injury her left side chest wall, 5th rib fracture and left elbow fracture in 06/2019. she still feel pain on left elbow. otherwise pt is health. Allergies Allergy/AdvReac Type Severity Reaction Status Date / Time morphine Allergy Unknown Vomiting Verified 11/17/19 03:00 codeine AdvReac Vomiting Unverified 11/17/19 03:00 diphenhydramine AdvReac Vomiting Unverified 11/17/19 03:00 hydromorphone [From Dilaudid] AdvReac Vomiting Verified 11/17/19 03:00 shellfish derived AdvReac Vomiting Unverified 11/17/19 03:00 Home Medications Home Medications Medication Instructions Recorded Confirmed Type acetaminophen [Acetaminophen Extra 1,000 mg PO Q8H PRN 11/17/19 11/17/19 History Strength] calcium carbonate [Tums] 200 mg PO DIRECTED PRN 11/17/19 11/17/19 History cannabidiol 100 mg PO BID 11/17/19 11/17/19 History cholecalciferol (vitamin D3) 400 unit PO DAILY 11/17/19 11/17/19 History gabapentin 100 mg PO HS 11/17/19 11/17/19 History garlic 1,000 mg PO DAILY 11/17/19 11/17/19 History ibuprofen 400 mg PO Q6H PRN 11/17/19 11/17/19 History ketotifen fumarate 1 drp OPHTHALMIC (EYE) DIRECTED 11/17/19 11/17/19 History PRN meloxicam 15 mg PO DAILY PRN 11/17/19 11/17/19 History multivitamin with iron 1 tab PO DAILY 11/17/19 11/17/19 History omega 2-pwf-gsg-fish oil [Fish Oil] 1 cap PO TID 11/17/19 11/17/19 History Patient History Medical History Hyperlipidemia not high enough for medication Injury of left foot Surgical History History of tonsillectomy S/P wisdom tooth extraction Social History Preferred Language: Occitan Communication Ability: Effective 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 Beliefs That Will Affect Care: None marital status: Current Living Situation: Spouse Feels Safe at Home: Yes Smoking Status: Former smoker Tobacco Type: cigarettes ; Hx Alcohol Use: Yes Alcohol type: beer and wine Hx Substance Use: No Review of Systems Constitutional: as per Subjective / HPI Eyes: as per Subjective / HPI Ear, Nose, Mouth, Throat: as per Subjective / HPI Respiratory: as per Subjective / HPI Cardiovascular: as per Subjective / HPI Additional Comments: hyperlipidemia Gastrointestinal: as per Subjective / HPI sigmoid colon diverticulosis Genitourinary: as per Subjective / HPI Musculoskeletal: as per Subjective / HPI Integumentary: as per Subjective / HPI Neurologic: as per Subjective / HPI Psychiatric: as per Subjective / HPI Endocrine: as per Subjective / HPI Hematologic / Lymphatic: as per Subjective / HPI Allergy / Immunological: as per Subjective / HPI Physical Exam Constitutional: WD/WN, vitals as above well developed, well nourished, + acute distress and + ill appearing Eyes: PERRL, conjunctivae normal, anicteric sclerae ENMT: external ear and nose normal, oropharynx normal Neck: trachea midline, no thyromegaly Respiratory: normal respiratory effort, lungs clear to auscultation Cardiovascular: RRR, no murmur, no edema Rate/Rhythm: regular rate and regular rhythm Heart Sounds: normal S1 and normal S2 Gastrointestinal (Abdomen): Percussion/Palpation: + abdomen tender, + guarding, + abdomen rigid and abdomen soft significant tenderness at whole abdomen with rebound pain, BS -, mild distended, Musculoskeletal: pt could not move her left elbow, no swelling, no redness, some tenderness Skin: no rashes, warm and dry Neurologic: patellar DTR's 2+ bilat, sensation intact Psychiatric: Orientation: alert and oriented x 3 Results & Data Vital Signs (Past 12 Hours) Vital Signs Temp Pulse Pulse Resp BP BP Pulse Ox 11/17/19 05:14 76 18 97/60 L 95 11/17/19 03:12 97 H 18 119/83 97 11/17/19 02:40 98 11/17/19 02:05 36.3 C L 106 H 16 114/70 99 Laboratory Results Abnormal lab results 11/17/19 11/17/19 11/17/19 Range/Units 02:35 02:39 02:39 RBC 4.17 L (4.2-5.4) M/uL Neut # (Auto) 8.77 H (1.4-6.5) K/uL Lymph # (Auto) 0.95 L (1.2-3.4) K/uL BUN 23 H (7-18) mg/dl BUN/Creatinine Ratio 24.6 H (10-20) Glucose 143 H (70-99) mg/dl AST 14 L (15-37) U/L Albumin 3.3 L (3.4-5.0) gm/dl Globulin 4.5 H (2.5-4.0) gm/dl Albumin/Globulin Ratio 0.7 L (0.9-2) Urine Appearance Cloudy A (Clear) Urine Protein 1+ H (Negative) Urine Ketones 2+ H (Negative) Urine Blood 2+ H (Negative) Ur Leukocyte Esterase Trace H (Negative) Urine WBC (Auto) 5-10 H (0-5) /hpf Urine RBC (Auto) 5-10 H (0-4) /hpf U Epithel Cells (Auto) 10-20 H (0-5) /lpf Diagnostic Findings CT scan 11/17/2019- diagnosis- perforated sigmoid diverticulitis
--- NOTE | 2019-11-17 05:59 | History & Physical Bridge Note ---
Date of Service November 17, 2019 History & Physical Bridge Note I have examined the patient, reviewed the History & Physical and in the interval since the performance of the History & Physical I have noted the following changes of clinical significance: no changes noted
[2019-11-17] MEDS ORDERED: VANCOMYCIN HCL 1000MG/20ML VIAL ONE (06:14)
[2019-11-17] MEDS ORDERED: fentaNYL citrate 100 MCG/2 ML VIAL ONE ×2 (06:23→07:29)
[2019-11-17] MEDS ORDERED: MIDAZOLAM HCL 1 MG/ML 2ML VIAL ONE (06:23)
[2019-11-17] MEDS ORDERED: LIDOCAINE HCL 1% 20 ML VIAL ONE (06:28)
[2019-11-17] MEDS ORDERED: BUPIVACAINE 0.5 % 5 MG/1 ML MPF 30ML VIAL ONE (06:29)
--- NOTE | 2019-11-17 06:35 | CT Scan Report ---
CT abd pelvis wo con CT DOSE: 373.45 mGy.cm HISTORY: Pain eval for perforated bowel; tic; appy TECHNIQUE: Multiaxial CT images of the abdomen and pelvis were performed without contrast. A dose lo wering technique was utilized adhering to the principles of ALARA. COMPARISON STUDY: None. FINDINGS: Lung bases are clear. Liver spleen and pancreas are grossly unremarkable. Bowel pattern overall is nonobstructive. There is a trace amount of free air within the abdomen and p yesika. No large collections are identified. This bases suggestive of a component of perforated divert iculitis. Exact configuration location and extent is difficult to ascertain given the absence of oral contrast. Kidneys negative for hydronephrosis. IMPRESSION: 1. Trace amount of scattered free intra-abdominal and free intraperitoneal air. 2. This most likely relates to perforated diverticulitis although extent of the inflammatory process is difficult to ascertain given the absence of oral contrast. 3. Nonobstructive bowel pattern. 4. No well-defined drainable abscess or collection ACT 112: Negative or not required by law. The above report was generated using voice recognition software. It may contain grammatical, syntax or spelling errors. Electronically signed by: Kvng Simmons M.D. 11/17/2019 6:34 AM
[2019-11-17] MEDS ORDERED: SCOPOLAMINE 1.5 MG TDSY ONE (06:37)
--- NOTE | 2019-11-17 06:39 | Anesthesiology Consultation ---
Date of Service November 17, 2019 History Surgery Operation Date: 11/17/19 06:30 Proposed Procedures p Exploratory Laparotomy - Julio San MD Height/Weight Height: 5 ft 2 in Weight: 63.5 kg Allergies Allergy/AdvReac Type Severity Reaction Status Date / Time morphine Allergy Unknown Vomiting Verified 11/17/19 03:00 codeine AdvReac Vomiting Unverified 11/17/19 03:00 diphenhydramine AdvReac Vomiting Unverified 11/17/19 03:00 hydromorphone [From Dilaudid] AdvReac Vomiting Verified 11/17/19 03:00 shellfish derived AdvReac Vomiting Unverified 11/17/19 03:00 Medications Home Medications Medication Instructions Recorded Confirmed Last Taken acetaminophen [Acetaminophen Extra 1,000 mg PO Q8H PRN 11/17/19 11/17/19 Unknown Strength] calcium carbonate [Tums] 200 mg PO DIRECTED PRN 11/17/19 11/17/19 Unknown cannabidiol 100 mg PO BID 11/17/19 11/17/19 Unknown cholecalciferol (vitamin D3) 400 unit PO DAILY 11/17/19 11/17/19 Unknown gabapentin 100 mg PO HS 11/17/19 11/17/19 Unknown garlic 1,000 mg PO DAILY 11/17/19 11/17/19 Unknown ibuprofen 400 mg PO Q6H PRN 11/17/19 11/17/19 Unknown ketotifen fumarate 1 drp OPHTHALMIC (EYE) DIRECTED 11/17/19 11/17/19 Unknown PRN meloxicam 15 mg PO DAILY PRN 11/17/19 11/17/19 Unknown multivitamin with iron 1 tab PO DAILY 11/17/19 11/17/19 Unknown omega 4-thd-ubx-fish oil [Fish Oil] 1 cap PO TID 11/17/19 11/17/19 Unknown Active Medications Generic Name Dose Route Start Last Admin Trade Name Freq PRN Reason Stop Dose Admin Sodium Chloride 500 mls @ 125 mls/hr 11/17/19 04:15 11/17/19 05:14 Nss IV 12/17/19 04:14 125 mls/hr .Q4H GIOVANY Administration Scopolamine 1.5 mg 11/17/19 06:41 11/17/19 06:43 Transderm-Scop TD 11/17/19 06:42 1.5 mg ONE ONE Administration NPO Date Last Intake of Fluids: 11/16/19 Time Last Intake of Fluids: 18:00 Date Last Intake of Solids: 11/16/19 Time Last Intake of Solids: 18:00 Past Medical History Medical History Hyperlipidemia not high enough for medication Injury of left foot Exercise / Class Metabolic Activity II 4-5 Yardwork/Stairs/Walk up hill Past Surgical History Surgical History History of tonsillectomy S/P wisdom tooth extraction Past Anesthesia History No Hx of Anesthesia Complications History of PONV No Hx of PONV (But most narcotics do cause n/v) and No Hx of Motion Sickness Social History Smoking Status: Former smoker tobacco type: cigarettes Hx Alcohol Use: Yes Alcohol type: beer and wine alcohol intake frequency: 3 or more drinks per day Hx Substance Use: No Physical Exam Vital Signs Last Vital Signs Temp 37.6 C H 11/17/19 06:11 Pulse 97 H 11/17/19 06:11 Resp 20 11/17/19 06:11 BP 98/64 L 11/17/19 06:11 Pulse Ox 97 11/17/19 06:11 Testing Laboratory Results 11/17/19 02:39 11/17/19 02:39 Urine Color Yellow 11/17/19 02:35 Urine Appearance Cloudy (Clear) A 11/17/19 02:35 Urine pH 5.5 (4.5-7.5) 11/17/19 02:35 Ur Specific [place] 1.020 (1.000-1.030) 11/17/19 02:35 Urine Protein 1+ (Negative) H 11/17/19 02:35 Urine Glucose (UA) Negative (Negative) 11/17/19 02:35 Urine Ketones 2+ (Negative) H 11/17/19 02:35 Urine Nitrite Negative (Negative) 11/17/19 02:35 Ur Leukocyte Esterase Trace (Negative) H 11/17/19 02:35 Urine WBC (Auto) 5-10 /hpf (0-5) H 11/17/19 02:35 Urine RBC (Auto) 5-10 /hpf (0-4) H 11/17/19 02:35 U Hyaline Cast (Auto) 1-5 /lpf (0-5) 11/17/19 02:35 U Epithel Cells (Auto) 10-20 /lpf (0-5) H 11/17/19 02:35 Urine Bacteria (Auto) Negative (Negative) 11/17/19 02:35 Electrocardiogram Date: 11/17/19 Findings: + NSR @ (99) and + NSST changes Echocardiogram Date: 07/03/19 EF: 70 LV Function: normal Other Findings: + LVH (Some septal thickening but no outflow obstruction) Valvular Disease: + MR (Mild to moderate)
[2019-11-17] MEDS ORDERED: SCOPOLAMINE 1.5 MG TDSY TD ONE ×2 (06:41→06:49)
[2019-11-17] MEDS ORDERED: ONDANSETRON INJ 2 MG/ML 2 ML VIAL IV PRN (07:17)
[2019-11-17] MEDS ORDERED: ATROPINE SULFATE 0.1 MG/ML 10ML SYR IV PRN (07:17)
[2019-11-17] MEDS ORDERED: HYDROmorphone INJ 2 MG/ML SYR/VIAL IV PRN (07:17)
[2019-11-17] MEDS ORDERED: PROMETHAZINE HCL 6.25 MG in SODIUM CHLORIDE 0.9% 50 ML IV PRN (07:17)
[2019-11-17] MEDS ORDERED: ePHEDrine sulfate 50 MG/ML AMP IV PRN (07:17)
[2019-11-17] MEDS ORDERED: DEXAMETHASONE SOD INJ 4 MG/ML VIAL ONE (07:29)
[2019-11-17] MEDS ORDERED: NEOSTIGMINE METHYLSULFATE 5 MG/5 ML SYR ONE (07:29)
[2019-11-17] MEDS ORDERED: PROPOFOL IV EMULSION 10 MG/ML 20 ML VIAL IV ONE (07:29)
[2019-11-17] MEDS ORDERED: GLYCOPYRROLATE 0.2 MG/ML VIAL ONE ×2 (07:29→09:42)
[2019-11-17] MEDS ORDERED: LIDOCAINE HCL 2% 2 ML VIAL/AMP(20MG/ML) INFIL ONE (07:29)
[2019-11-17] MEDS ORDERED: ONDANSETRON INJ 2 MG/ML 2 ML VIAL ONE ×2 (07:29→12:40)
[2019-11-17] MEDS ORDERED: ROCURONIUM BROMIDE 10 MG/ML 5 ML VIAL ONE ×5 (07:44→09:14)
[2019-11-17] MEDS ORDERED: CHECK SCOPOLAMINE PATCH PLACEMENT SCH ×2 (08:00)
[2019-11-17] MEDS ORDERED: KETAMINE HCL INJ 50 MG/ML 10 ML VIAL ONE (08:16)
[2019-11-17] MEDS ORDERED: ACETAMINOPHEN 1000 MG/100 ML IV IV ONE (08:22)
[2019-11-17] MEDS ORDERED: SUCCINYLCHOLINE CHLORIDE 20 MG/ML 10 ML VIAL ONE (08:43)
[2019-11-17] MEDS ORDERED: BACITRACIN OINT 15 GM TUBE ONE (09:53)
--- NOTE | 2019-11-17 10:06 | Post Operative Brief Note ---
Immediate Post Op Note v1 Date of Surgery November 17, 2019 Pre & Post Diagnosis Operation Date: 11/17/19 06:30 Pre-Op Diagnosis: perforated sigmoid diverticulitis, peritonitis, Post-Op Diagnosis: perforated sigmoid diverticulitis, peritonitis I identified the patient and participated in the time-out.: Yes Procedure Operation Date: 11/17/19 06:30 Actual Procedures p Exploratory Laparotomy; Sigmoid Colon Resection, Formation Of Colostomy - Julio San MD Surgeon Julio San MD [employer] Operator Head MACHELLE Calvillo Estimated Blood Loss 30 Findings Consistent with Post-Op Diagnosis acute sigmoid colon diverticulitis with perforation, severe peritonitis, pus fluid abdominal cavity Fluids 1880ml Specimens sigmoid colon, stapler line colon, culture Drains Davison Catheter and Other (KAYDEN drainage X 1) Anesthesia Type General Complications none Disposition Accompanied Patient To Recovery: Yes Disposition: Recovery Room Overlapping Procedure I was immediately available: during the entire case.
[2019-11-17] MEDS ORDERED: HYDROmorphone INJ 1 MG/ML SYRINGE ONE (10:26)
[2019-11-17] MEDS ORDERED: KETOTIFEN FUMARATE OP PRN (10:27)
[2019-11-17] MEDS ORDERED: CALCIUM CARBONATE 500 MG CHEWABLE TAB PO PRN (10:27)
[2019-11-17] MEDS ORDERED: ACETAMINOPHEN 500 MG TAB PO PRN (10:27)
[2019-11-17] MEDS ORDERED: MEPERIDINE HCL 25 MG/ML CARP/VIAL IV PRN (10:27)
[2019-11-17] MEDS ORDERED: MELOXICAM 7.5 MG TAB PO PRN (10:27)
[2019-11-17] MEDS ORDERED: fentaNYL citrate 100 MCG/2 ML VIAL IV PRN (10:27)
--- NOTE | 2019-11-17 11:28 | Operative Report (OR) ---
DATE OF OPERATION: 11/17/2019 PREOPERATIVE DIAGNOSES: Perforated sigmoid diverticulitis with peritonitis. POSTOPERATIVE DIAGNOSES: Perforated sigmoid diverticulitis with peritonitis. OPERATION: Emergency exploratory laparotomy, resection, sigmoid colon colostomy. SURGEON: Julio San MD. CORE SHAPER SIDES: Patricia Kurtz PA-C. ANESTHESIA: General. ESTIMATED BLOOD LOSS: About 30 mL. FINDINGS: Perforated sigmoid diverticulitis, severe peritonitis. COMPLICATIONS: None. INDICATIONS FOR THE PROCEDURE: This is a 69-year-old female who presented to ED with severe abdominal pain. The patient had a CT scan diagnosis of perforated sigmoid diverticulitis with free perforation. I recommended to do the emergency exploratory laparotomy, possible bowel resection, possible colostomy. I did talk to the patient and patient's about the benefit, the risk, alternate procedure. I indicated the risks may include but not limited such as bleeding, infection, sepsis, multiple organ failure, anastomosis leak, even . Patient and patient's understand this and signed informed consent and I answered all questions. DETAILS OF PROCEDURE: We brought the patient to the OR, put the patient on the supine position. The patient received SCD on bilateral legs to prevent DVT. Also, patient received 3.375 grams Zosyn IV for prophylactic antibiotic. The patient received general anesthesia without difficulties. Abdomen was appropriately draped in routine sterile fashion. After timeout, I made a midline incision and got to end of the abdomen without difficulty. There are significant pus flow inside the abdominal cavity. We suctioned all the pus flow within the wound culture and then we found the patient had a perforation on the sigmoid colon with severe diverticulitis. Then we mobilized the colon laterally to the wide line, sigmoid colon and mobilized, reached the proximal rectal then I made a window between the mesentery and sigmoid colon used 80 mm Endo-JOSELINE staple for transection on the proximal sigmoid colon and once we mobilized the whole sigmoid colon, we used the endovascular staple, dissected out the mesentery and the ureter was identified and protected at all time. Once we mobilized the sigmoid colon reached the proximal rectal area. We made a window on the mesentery near the junction rectal and sigmoid colon. Then I used the 60 JOSELINE staple, transected near the rectal, then at this moment, we completely removed the whole sigmoid colon about 10 cm long. Hemostasis was obtained. We used 1 g vancomycin +1 liter warm saline and flushed the abdominal cavity. Then we used another liter of warm saline to flush the abdominal cavity. Once we suctioned all the fluid out, and we put the 10 mm KAYDEN drainage on the pelvic area. We sutured the KAYDEN drainage on the right side of the abdominal wall by using 3-0 nylon and then we were ready to create a colostomy and make the circular incision on the left side of the abdominal wall and reached the fascial layer, opened the fascial layer, opened the peritoneum. The opening passed 2 fingers easily. Then we brought the descending colon out of the incision and then we used a 0 Vicryl to fix the colon and the fascial layer interruptedly, then we used the Bovie to remove the colon staple line. The staple line of colon was sent to pathology. Then I used 2-0 Vicryl interrupted, touch the skin on the opening of colon. Blood circulation is a pink, so colostomy was created, hemostasis obtained. Then rechecked the abdomen. Hemostasis was obtained. No active bleeding. Then we closed the abdominal incision by using #1 PDS continuous running, closed subcutaneous layer by using 2-0 Vicryl continuous running, closed the skin by using staple and then we put the dressing on and put a colostomy bag on. The patient tolerated the procedure well. All instrument, needle, sponge count were correct x2 at the end of case. The patient transferred to recovery room in stable condition. Specimen sent to pathology. I attest to the content of the Intraoperative Record and any orders documented therein. Any exception s are noted below.
--- NOTE | 2019-11-17 11:47 | Anesthesiology Progress Note ---
Date of Service November 17, 2019 Anesthesia Post Procedure Vital Signs Vital Signs: Temp Pulse Pulse Pulse Resp BP BP 11/17/19 11:30 37.2 C 85 16 115/73 11/17/19 11:10 80 17 106/72 11/17/19 10:55 37.8 C H 79 18 110/72 11/17/19 10:45 89 23 115/62 11/17/19 10:35 83 21 149/74 H 11/17/19 10:25 85 24 115/78 11/17/19 10:15 37.1 C 86 18 132/81 11/17/19 06:11 37.6 C H 97 H 20 11/17/19 05:14 76 18 11/17/19 03:12 97 H 18 11/17/19 02:40 11/17/19 02:05 36.3 C L 106 H 16 114/70 BP Pulse Ox 11/17/19 11:30 95 11/17/19 11:10 96 11/17/19 10:55 97 11/17/19 10:45 94 11/17/19 10:35 99 11/17/19 10:25 99 11/17/19 10:15 99 11/17/19 06:11 98/64 L 97 11/17/19 05:14 97/60 L 95 11/17/19 03:12 119/83 97 11/17/19 02:40 98 11/17/19 02:05 99 Pain Intensity Upper Abdomen: Pain Intensity: 3 Abdomen: Pain Intensity: 4 Transfer of Care Handoff Completed per policy Notes Mental Status: alert / awake / arousable Patient Amnestic to Procedure: Yes Nausea / Vomiting: adequately controlled Pain: adequately controlled Airway Patency, RR, SpO2: stable & adequate BP & HR: stable & adequate Hydration State: stable & adequate Anesthetic Complications: no major complications apparent
[2019-11-17] MEDS ORDERED: IBUPROFEN 200 MG TAB PO PRN (11:55)
[2019-11-17] MEDS: D5W AND 1/2NSS + 20MEQ KCL 20 MEQ/1,000 ML BAG IV SCH ×2 (12:28→22:28)
[2019-11-17] MEDS ORDERED: MEPERIDINE HCL 50 MG/ML CARP IV PRN (12:45)
[2019-11-17] MEDS: MEPERIDINE HCL 25 MG/ML CARP/VIAL IV PRN ×2 (13:06→23:18)
[2019-11-17] MEDS ORDERED: OMEGA-3 (PURIFIED FISH OIL) 1 GM CAP PO SCH (14:00)
[2019-11-17] MEDS: PIPERACILLIN/TAZOBACTAM 3.375 GM in DEXTROSE 5% 100 ML IV SCH ×2 (14:34→20:20)
[2019-11-17] MEDS: ENOXAPARIN INJ 40 MG/0.4 ML SYR SQ SCH (20:22)
[2019-11-17] MEDS ORDERED: CANNABIDIOL PO SCH (21:00)
[2019-11-17] MEDS ORDERED: GABAPENTIN 100 MG CAP PO SCH (21:00)
--- NOTE | 2019-11-17 22:30 | Electrocardiogram Report ---
Test Reason : Blood Pressure : / mmHG Vent. Rate : 099 BPM Atrial Rate : 099 BPM P-R Int : 144 ms QRS Dur : 080 ms QT Int : 350 ms P-R-T Axes : 061 011 058 degrees QTc Int : 449 ms Normal sinus rhythm Possible Left atrial enlargement Nonspecific ST abnormality Abnormal ECG When compared with ECG of 03-JUL-2019 08:53, No significant change was found Confirmed by Jonatan Luna ([id number]) on 11/17/2019 10:30:39 PM Referred By: REFERRED SELF Confirmed By:Jonatan Luna
[2019-11-18] MEDS: MEPERIDINE HCL 25 MG/ML CARP/VIAL IV PRN ×4 (04:15→21:04)
[2019-11-18] MEDS: PIPERACILLIN/TAZOBACTAM 3.375 GM in DEXTROSE 5% 100 ML IV SCH ×3 (05:54→21:04)
[2019-11-18 06:06] LABS: Hematocrit (blood only) 30.6 % (37-47); Hemoglobin 10.1 g/dL (12.0-16.0); Mean Corpuscular Hemoglobin 31.8 pg (25-34); Mean Corpuscular Volume 96.2 fL (80-100); Mean Platelet Volume 8.5 fL (7.4-10.4); Platelet Count 283 K/uL (130-400); RDW Coefficient of Variation 11.9 % (11.5-14.5); RDW Standard Deviation 42.2 fL (36.4-46.3); Red Blood Count 3.18 M/uL (4.2-5.4); White Blood Count 14.56 K/uL (4.8-10.8)
[2019-11-18 06:37] LABS: Albumin Level 2.2 gm/dl (3.4-5.0); BUN Creatinine Ratio 24.9 (10-20); Calcium 8.5 mg/dl (8.5-10.1); Creatinine Clr Calc Pharmacy 58.8 ml/min; Est GFR (African American) 88.5; Est GFR (Non-African American) 76.4; Potassium 4.5 mmol/L (3.5-5.1)
[2019-11-18 06:43] LABS: Albumin Globulin Ratio 0.6 (0.9-2); Bilirubin,Total 0.3 mg/dl (0.2-1); Globulin 3.8 gm/dl (2.5-4.0)
--- NOTE | 2019-11-18 06:43 | Emergency Department Note ---
Entered by Erin Leos acting as a scribe for History of Present Illness General Chief complaint: Abdominal Pain Stated complaint: VOMITING, ABD PAIN, FEVER Time Seen by Provider: 11/17/19 02:14 Source: patient History of Present Illness Provider complaint: fever, abdominal pain Onset (ago): hour(s) 6 Location: head and abdomen Radiation: non-radiation Pain Consistency: + intermittent Maximum Pain Intensity: 5 Quality: + sharp Relieved By: + none Exacerbated By: + none Associated symptoms: + denies other symptoms, + fever/chills and + nausea/vomiting The patient is a 69 y/o female who presents to the emergency department for evaluation of intermittent fevers and chills that began 6 hours ago. The patient reports that she has not been feeling well for a few days but this evening began having intermittent fevers, chills, and sharp abdominal pain. She reports that she also vomited prior to arrival. The patient reports that her abdomen hurts in waves but does not completely go away. She notes a trace of dizziness when she lays down as well. The patient denies diarrhea, urinary changes, and any other symptoms. Home Medications Home Medications Medication Instructions Recorded Confirmed Type acetaminophen [Acetaminophen Extra 1,000 mg PO Q8H PRN 11/17/19 11/17/19 History Strength] calcium carbonate [Tums] 200 mg PO DIRECTED PRN 11/17/19 11/17/19 History cannabidiol 100 mg PO BID 11/17/19 11/17/19 History cholecalciferol (vitamin D3) 400 unit PO DAILY 11/17/19 11/17/19 History gabapentin 100 mg PO HS 11/17/19 11/17/19 History garlic 1,000 mg PO DAILY 11/17/19 11/17/19 History ibuprofen 400 mg PO Q6H PRN 11/17/19 11/17/19 History ketotifen fumarate 1 drp OPHTHALMIC (EYE) DIRECTED 11/17/19 11/17/19 History PRN meloxicam 15 mg PO DAILY PRN 11/17/19 11/17/19 History multivitamin with iron 1 tab PO DAILY 11/17/19 11/17/19 History omega [id number]-fish oil [Fish Oil] 1 cap PO TID 11/17/19 11/17/19 History Allergies Allergy/AdvReac Type Severity Reaction Status Date / Time morphine Allergy Unknown Vomiting Verified 11/17/19 03:00 codeine AdvReac Vomiting Unverified 11/17/19 03:00 diphenhydramine AdvReac Vomiting Unverified 11/17/19 03:00 hydromorphone [From Dilaudid] AdvReac Vomiting Verified 11/17/19 03:00 shellfish derived AdvReac Vomiting Unverified 11/17/19 03:00 Past Med/Surg History Medical History Hyperlipidemia not high enough for medication Injury of left foot Surgical History History of tonsillectomy S/P wisdom tooth extraction Social History Preferred Language: Jamaican Communication Ability: Effective Shuttle Spotter Required: No Beliefs That Will Affect Care: None marital status: Current Living Situation: Spouse Other Information That Helps Us Care for You: No Feels Safe at Home: No Is there a partner from a previous relationship who is making you feel unsafe now?: No Any Concerns about Your Family Situation: No Would You Like to Speak to Someone About Your Situation: No Safety Concerns: Feels Safe At This Time Smoking Status: Never smoker Tobacco Type: cigarettes ; Hx Alcohol Use: No Hx Substance Use: No Review of Systems See HPI for pertinent positives & negatives. and A total of 10 systems reviewed and were otherwise negative Physical Exam Vital Signs Vital Signs - 24 hr 11/17/19 02:05 11/17/19 02:40 11/17/19 03:12 Temperature 97.3 F L Temperature Source Oral Pulse Rate 106 H Pulse Rate [Finger] 97 H Pulse Rhythm [Finger] Pulse Strength [Finger] Respiratory Rate 16 18 Respiratory Effort / Characteristics Non-Labored Spontaneous Respiratory Depth Normal Normal Respiratory Pattern Regular Blood Pressure 114/70 Blood Pressure [Right Arm] 119/83 Blood Pressure Mean 84 Blood Pressure Mean [Right Arm] 95 Blood Pressure Position [Right Arm] Pulse Oximetry 99 98 97 Oxygen Delivery Method Room Air Room Air Room Air Sepsis Recent Fever Within 48 Hours Yes Sepsis New/Unexplained Change in Mental Status No Sepsis Action Taken by Nursing No Action Required 11/17/19 05:14 11/17/19 06:11 Temperature 99.7 F H Temperature Source Oral Pulse Rate Pulse Rate [Finger] 76 97 H Pulse Rhythm [Finger] Regular Pulse Strength [Finger] Normal Respiratory Rate 18 20 Respiratory Effort / Characteristics Non-Labored Spontaneous Non-Labored Spontaneous Respiratory Depth Normal Normal Respiratory Pattern Regular Blood Pressure Blood Pressure [Right Arm] 97/60 L 98/64 L Blood Pressure Mean Blood Pressure Mean [Right Arm] 72 75 Blood Pressure Position [Right Arm] Sitting Pulse Oximetry 95 97 Oxygen Delivery Method Room Air Room Air Sepsis Recent Fever Within 48 Hours Sepsis New/Unexplained Change in Mental Status Sepsis Action Taken by Nursing General: uncomfortable diaphoretic HEENT: Head - normocephalic and atraumatic Pupils are equal, round, and reactive to light. Extraocular eye muscles are intact, and sclera are anicteric. Nose - moist nasal mucosa without discharge. Mouth - moist buccal mucosa. Oropharynx is nonerythematous and there is no tonsillar exudate or edema noted. Neck: Supple; no cervical lymphadenopathy. Heart: Regular rate and rhythm. There is a normal S1 and S2 with no murmurs, clicks, or gallops appreciated. Lungs: Clear to auscultation bilaterally with no wheezes, rales, or rhonchi. Abdomen: Acute abdomen. There is significant rebound, guarding, and hypoactive bowel sounds. Extremities: No evidence of cyanosis, clubbing, or edema. There are easily palpable peripheral pulses. Skin: diaphoretic, warm and dry with good turgor and no rashes. Course Course 0222: Past medical records reviewed. The patient was evaluated in room C1. A complete history and physical exam was performed. An IV lock was initiated and labs were drawn as above. An order was placed for continuous cardiac monitoring. The patient was in a normal sinus rhythm at 80. 0258: I ordered Toradol 15 mg IV. The patient will go for a CT scan of the abdomen/pelvis emergently because of her significant abdominal findings. 0406: I checked on the patient and updated her on the results. The patient notes that her blood pressure tends to run low. Patient is comfortable at the moment and hemodynamically stable. Dr. Fernandez WU surgery was paged. 0411: I ordered Sodium chloride 0.9% 125mls/hr and Zosyn 3.375 gm IV. 0412: I spoke with Dr. Fernandez WU surgery. He will evaluate the patient. 0516: I spoke with Dr. San. He will take the patient to surgery. Administered Medications Enoxaparin Sodium (Lovenox) 40 mg SQ Q24H [facility] Stop: 12/17/19 21:59 Last Admin: 11/17/19 20:22 Dose: 40 mg Documented by: [id number] Gabapentin (Neurontin) 100 mg PO HS GIOVANY Stop: 12/17/19 20:59 Last Admin: 11/17/19 19:53 Dose: Not Given Documented by: [id number] Potassium Chloride/Dextrose/Sod Cl (D5w And 1/2nss + 20meq Kcl) 20 meq in 1,000 mls @ 100 mls/hr IV .Q10H GIOVANY Stop: 12/17/19 11:59 Last Admin: 11/17/19 22:28 Dose: 100 mls/hr Documented by: [id number] Infusion: 11/17/19 22:28 Dose: 100 mls/hr Documented by: [id number] Admin: 11/17/19 12:28 Dose: 100 mls/hr Documented by: [id number] Piperacillin Sod/Tazobactam (Sod 3.375 gm/ Dextrose) 115 mls @ 28.75 mls/hr IV Q8H GIOVANY; Protocol Stop: 11/27/19 13:59 Last Admin: 11/18/19 05:54 Dose: 28.8 mls/hr Documented by: [id number] Infusion: 11/18/19 00:42 Dose: 0 mls/hr Documented by: [id number] Admin: 11/17/19 20:20 Dose: 28.8 mls/hr Documented by: [id number] Infusion: 11/17/19 18:25 Dose: 0 mls/hr Documented by: [id number] Admin: 11/17/19 14:34 Dose: 28.8 mls/hr Documented by: [id number] Meperidine HCl (Demerol) 25 mg IV Q4H PRN PRN Reason: Pain 6-10 Stop: 12/01/19 12:49 Last Admin: 11/18/19 04:15 Dose: 25 mg Documented by: [id number] Admin: 11/17/19 23:18 Dose: 25 mg Documented by: [id number] Admin: 11/17/19 13:06 Dose: 25 mg Documented by: [id number] Discontinued Medications Bacitracin (Bacitracin) Confirm Administered Dose 45 appln .ROUTE .STK-MED ONE Stop: 11/17/19 09:54 Last Admin: 11/17/19 09:57 Dose: 45 appln Documented by: [id number] Bupivacaine HCl (Marcaine 0.5% Mpf) Confirm Administered Dose 30 ml .ROUTE .STK- MED ONE Stop: 11/17/19 06:30 Last Admin: 11/17/19 07:58 Dose: 20 ml Documented by: [id number] Hydromorphone HCl (Dilaudid) Confirm Administered Dose 1 mg .ROUTE .STK-MED ONE Stop: 11/17/19 10:27 Last Increment: 11/17/19 10:38 Dose: 0.5 mg Documented by: [id number] Increment: 11/17/19 10:28 Dose: 0.5 mg Documented by: [id number] Sodium Chloride (Nss) 500 mls @ 999 mls/hr IV .Q31M ONE Stop: 11/17/19 03:28 Last Infusion: 11/17/19 03:45 Dose: 0 mls/hr Documented by: [id number] Admin: 11/17/19 03:13 Dose: 999 mls/hr Documented by: [id number] Piperacillin Sod/Tazobactam (Sod 3.375 gm/ Dextrose) 100 ml in 115 mls @ 230 mls/hr IV NOW STA Stop: 11/17/19 04:40 Last Infusion: 11/17/19 05:00 Dose: 0 mls/hr Documented by: [id number] Admin: 11/17/19 04:25 Dose: 230 mls/hr Documented by: [id number] Sodium Chloride (Nss) 500 mls @ 125 mls/hr IV .Q4H GIOVANY Stop: 12/17/19 04:14 Last Admin: 11/17/19 12:09 Dose: Not Given Documented by: [id number] Infusion: 11/17/19 12:09 Dose: 0 mls/hr Documented by: [id number] Admin: 11/17/19 05:14 Dose: 125 mls/hr Documented by: [id number] Ketorolac Tromethamine (Toradol) 15 mg IV NOW STA Stop: 11/17/19 02:59 Last Admin: 11/17/19 03:13 Dose: 15 mg Documented by: [id number] Lidocaine HCl (Xylocaine 1% (Local)) Confirm Administered Dose 20 ml .ROUTE .STK-MED ONE Stop: 11/17/19 06:29 Last Admin: 11/17/19 07:57 Dose: 20 ml Documented by: [id number] Miscellaneous (Check Scopolamine Patch Placement) 1 ea N/A QS GIOVANY Stop: 12/17/19 07:59 Last Admin: 11/17/19 12:09 Dose: Not Given Documented by: [id number] Ondansetron HCl (Zofran) Confirm Administered Dose 4 mg .ROUTE .STK-MED ONE Stop: 11/17/19 12:41 Last Admin: 11/17/19 13:04 Dose: 4 mg Documented by: [id number] Scopolamine (Transderm-Scop) 1.5 mg TD ONE ONE Stop: 11/17/19 06:42 Last Admin: 11/17/19 06:43 Dose: 1.5 mg Documented by: [id number] Scopolamine (Transderm-Scop) 1.5 mg TD ONE ONE Stop: 11/17/19 06:50 Last Admin: 11/17/19 12:08 Dose: Not Given Documented by: [id number] Vancomycin HCl (Vancomycin Hcl) Confirm Administered Dose 50 mg .ROUTE .STK-MED ONE Stop: 11/17/19 06:15 Last Admin: 11/17/19 07:57 Dose: 50 mg Documented by: [id number] Critical Care Time Critical Care Time: Yes Total Critical Care Time: 65 I have personally spent 65 minutes of critical care time in the direct management of this patient. This includes bedside care, interpretation of diagnostic studies, and testing, discussion with consultants, patient, and family members, and other required patient management activities. This 65 minutes is in excess of all separately billable procedures. Medical Decision Making Differential Diagnosis Differential Diagnosis: perforated bowel, diverticulitis, perforated appendix, appendicitis Medical Records Attestation: I reviewed the patient's medical records. Home Medications Current Medication List: was personally reviewed by me Laboratory Data Attestation: I reviewed the patient's lab results. Result diagrams: 11/18/19 05:52 11/18/19 05:52 Lab Results 11/17/19 11/17/19 11/17/19 Range/Units 02:35 02:39 02:39 WBC 9.95 (4.8-10.8) K/uL RBC 4.17 L (4.2-5.4) M/uL Hgb 13.2 (12.0-16.0) g/dL Hct 39.6 (37-47) % MCV 95.0 (80-100) fL MCH 31.7 (25-34) pg MCHC 33.3 (32-36) g/dL RDW Std Deviation 40.2 (36.4-46.3) fL RDW Coeff of Don 11.7 (11.5-14.5) % Plt Count 336 (130-400) K/uL MPV 9.0 (7.4-10.4) fL Immature Gran % (Auto) 0.2 % Neut % (Auto) 88.2 % Lymph % (Auto) 9.5 % Norman % (Auto) 1.9 % Eos % (Auto) 0.1 % Baso % (Auto) 0.1 % Immature Gran # (Auto) 0.02 (0.00-0.02) K/uL Neut # (Auto) 8.77 H (1.4-6.5) K/uL Lymph # (Auto) 0.95 L (1.2-3.4) K/uL Norman # (Auto) 0.19 (0.11-0.59) K/uL Eos # (Auto) 0.01 (0-0.5) K/uL Baso # (Auto) 0.01 (0-0.2) K/uL Sodium 136 (136-145) mmol/L Potassium 4.2 (3.5-5.1) mmol/L Chloride 103 (98-107) mmol/L Carbon Dioxide 27 (21-32) mmol/L Anion Gap 6.0 (3-11) BUN 23 H (7-18) mg/dl Creatinine 0.95 (0.6-1.2) mg/dl Est Cr Clr Drug Dosing 48.9 ml/min Est GFR ( Amer) 70.8 Est GFR (Non-Af Amer) 61.1 BUN/Creatinine Ratio 24.6 H (10-20) Glucose 143 H (70-99) mg/dl Calcium 9.3 (8.5-10.1) mg/dl Total Bilirubin 0.5 (0.2-1) mg/dl AST 14 L (15-37) U/L ALT 22 (12-78) U/L Alkaline Phosphatase 97 (45-117) U/L Total Protein 7.8 (6.4-8.2) gm/dl Albumin 3.3 L (3.4-5.0) gm/dl Globulin 4.5 H (2.5-4.0) gm/dl Albumin/Globulin Ratio 0.7 L (0.9-2) Lipase 86 (73-393) U/L Urine Color Yellow Urine Appearance Cloudy A (Clear) Urine pH 5.5 (4.5-7.5) Ur Specific Jamieson 1.020 (1.000-1.030) Urine Protein 1+ H (Negative) Urine Glucose (UA) Negative (Negative) Urine Ketones 2+ H (Negative) Urine Blood 2+ H (Negative) Urine Nitrite Negative (Negative) Urine Bilirubin Negative (Negative) Urine Urobilinogen Negative (Negative) Ur Leukocyte Esterase Trace H (Negative) Urine WBC (Auto) 5-10 H (0-5) /hpf Urine RBC (Auto) 5-10 H (0-4) /hpf U Hyaline Cast (Auto) 1-5 (0-5) /lpf U Epithel Cells (Auto) 10-20 H (0-5) /lpf Urine Bacteria (Auto) Negative (Negative) Imaging Data Radiologist's Impression: Radiology results as stated below per my review and the radiologist's interpretation: CT ABDOMEN & PELVIS Without Contrast: Findings consistent with perforated acute diverticulitis of sigmoid colon. Small amounts of free intraperitoneal gas. There are inflammatory changes and extra luminal gas adjacent to the sigmoid colon, where there are multiple diverticula. Evaluation for abscess is limited by lack of intravenous contrast. Small amount of free fluid. No renal stone or hydronephrosis. Unopacified solid organs otherwise unremarkable. Mild scarring/atelectasis right middle lobe and lingula. Scoliosis. Radiologist: Agus Acosta MD ECG Data Attestation: I personally reviewed and interpreted this ECG as follows: Indication: + abdominal pain Rate (beats per minute): 99 Rhythm: + normal sinus ECG ST segments: no ST depression and no ST elevation ECG Findings: no PACs and no PVCs Blood Pressure Blood Pressure Findings: Normal blood pressure MDM Narrative The patient is a 69 y/o female who presents to the emergency department for evaluation of intermittent fevers and chills that began 6 hours ago. Patient also noted intermittent episodes of diffuse abdominal pain. On physical exam, the patient had an acute abdomen. She had pain with even light palpation to the abdomen. She was guarding and had significant rebound. CT scan of the abdomen/pelvis confirmed acute perforated diverticulitis. I discussed the case with general surgery and they will take the patient to the OR. She remains hemodynamically stable. She was given a dose of IV Zosyn. Her pain was controlled here in the emergency department. Impression & Plan Perforation of sigmoid colon due to diverticulitis Discharge Plan Visit Data *Final* Discharge Date/Time: 11/17/19 05:49 Chief Complaint: Abdominal Pain Stated Complaint: VOMITING, ABD PAIN, FEVER ED Provider: Cheryle Loja Discharge Problem: Perforation of sigmoid colon due to diverticulitis Patient Disposition: Still a Patient Discharge Instructions Interventions: ED Discharge Assessment Last Done: 11/17/19 05:49 The lorenzoibe's documentation has been prepared under my direction and personally reviewed by me in its entirety. I confirm that the note above accurately reflects all work, treatment, procedures, and medical decision making performed by me.
[2019-11-18 07:10] LABS: Basophils # (auto) 0.01 K/uL (0-0.2); Basophils % (auto) 0.1 %; Eosinophils # (auto) 0.01 K/uL (0-0.5); Eosinophils % (auto) 0.1 %; Immature Granulocytes # (auto) 0.03 K/uL (0.00-0.02); Immature Granulocytes % (auto) 0.2 %; Lymphocytes # (auto) 1.73 K/uL (1.2-3.4); Lymphocytes % (auto) 11.9 %; Monocytes # (auto) 0.47 K/uL (0.11-0.59); Monocytes % (auto) 3.2 %; Neutrophils # (auto) 12.31 K/uL (1.4-6.5); Neutrophils % (auto) 84.5 %
--- NOTE | 2019-11-18 07:57 | Anesthesiology Progress Note ---
Date of Service November 18, 2019 Anesthesia Post Procedure Vital Signs Vital Signs: Temp Pulse Pulse Pulse Resp BP Pulse Ox 11/18/19 07:20 37.0 C 89 16 100/63 93 11/18/19 04:00 36.4 C L 80 20 101/59 L 94 11/18/19 02:20 94 11/18/19 00:00 36.4 C L 80 78 18 103/62 96 11/17/19 19:36 36.4 C L 83 18 91/50 L 96 11/17/19 16:48 81 11/17/19 15:52 36.8 C 87 16 98/62 L 96 11/17/19 14:13 36.8 C 82 16 93/55 L 96 11/17/19 13:15 36.9 C 87 14 100/61 96 11/17/19 12:45 37.1 C 89 16 114/69 97 11/17/19 12:15 37.1 C 84 16 114/72 97 11/17/19 12:00 37.3 C 86 14 121/72 96 11/17/19 11:45 37.1 C 83 16 112/69 95 11/17/19 11:30 37.2 C 85 16 115/73 95 11/17/19 11:10 80 17 106/72 96 11/17/19 10:55 37.8 C H 79 18 110/72 97 11/17/19 10:45 89 23 115/62 94 11/17/19 10:35 83 21 149/74 H 99 11/17/19 10:25 85 24 115/78 99 11/17/19 10:15 37.1 C 86 18 132/81 99 Pain Intensity Upper Abdomen: Pain Intensity: 3 Abdomen: Pain Intensity: 7 Notes Mental Status: alert / awake / arousable and participated in evaluation Patient Amnestic to Procedure: Yes Nausea / Vomiting: adequately controlled Pain: adequately controlled Airway Patency, RR, SpO2: stable & adequate BP & HR: stable & adequate Hydration State: stable & adequate Anesthetic Complications: no major complications apparent and Pt Satisfied with anesthetic care
[2019-11-18] MEDS: D5W AND 1/2NSS + 20MEQ KCL 20 MEQ/1,000 ML BAG IV SCH ×2 (08:22→19:03)
[2019-11-18] MEDS ORDERED: NON-FORMULARY MEDICATION (Garlic 1,000 MG) PO SCH (09:00)
[2019-11-18] MEDS ORDERED: MULTIVITAMIN TAB PO SCH (09:00)
--- NOTE | 2019-11-18 09:37 | Surgery Progress Note ---
Date of Service November 18, 2019 Assessment & Plan (1) Perforation of sigmoid colon due to diverticulitis: POD # 1 s/p exploratory laparotomy with sigmoid resection and Hartmans with end colostomy for perforated sigmoid diverticulitis with abscess -vitals stable, hypotensive but at pt's baseline - afebrile - leukocytosis of 14k likely postoperative stress response - moderate pain - no ostomy output - NGT with 300 cc dark bilious/brown output - adequate urine output Plan: Continue pain management, will start IV Tylenol prn and continue IV Demerol prn Continue NGT to LIS Continue NPO, may have ice chips Continue dewey drain to bulb suction Continue IV Zofran prn nausea hold any oral meds given NGT SCDS and Lovenox for DVT prophylaxis Recommend OOB to chair today discontinue Davison catheter Consult infectious disease for further Abx recommendations repeat am labs while npo Dr. Whitehead covering this weekend Dr. San has seen and examined pt, agrees with above. Subjective moderate pain somewhat controlled no nausea or vomiting no chest or shortness of breath has not been out of bed since surgery Physical Exam Constitutional: WD/WN, vitals as above no acute distress Respiratory: normal respiratory effort; no respiratory distress Gastrointestinal (Abdomen): Inspection/Auscultation: + abdominal surgical drain present (bloody serosanguineous); abdomen not distended and + abnormal bowel sounds (hypoactive) Percussion/Palpation: + abdomen tender (at midline incision, suprapubic, at drain site) and abdomen soft; no guarding and abdomen not rigid midline incision covered with dry dressing left mid colostomy with no air or stool output, stoma beefy red Skin: no rashes, warm and dry + incision (Covered with dry dressing, not inspected today) Psychiatric: A+Ox3, euthymic affect Results & Data Vital Signs (Past 12 Hours) Vital Signs Temp Pulse Pulse Pulse Resp BP Pulse Ox 11/18/19 07:20 37.0 C 89 16 100/63 93 11/18/19 04:00 36.4 C L 80 20 101/59 L 94 11/18/19 02:20 94 11/18/19 00:00 36.4 C L 80 78 18 103/62 96 Laboratory Results 11/18/19 11/18/19 Range/Units 05:52 05:52 WBC 14.56 H (4.8-10.8) K/uL RBC 3.18 L (4.2-5.4) M/uL Hgb 10.1 L D (12.0-16.0) g/dL Hct 30.6 L (37-47) % MCV 96.2 (80-100) fL MCH 31.8 (25-34) pg MCHC 33.0 (32-36) g/dL RDW Std Deviation 42.2 (36.4-46.3) fL RDW Coeff of Don 11.9 (11.5-14.5) % Plt Count 283 (130-400) K/uL MPV 8.5 (7.4-10.4) fL Immature Gran % (Auto) 0.2 % Neut % (Auto) 84.5 % Lymph % (Auto) 11.9 % Dukes % (Auto) 3.2 % Eos % (Auto) 0.1 % Baso % (Auto) 0.1 % Immature Gran # (Auto) 0.03 H (0.00-0.02) K/uL Neut # (Auto) 12.31 H (1.4-6.5) K/uL Lymph # (Auto) 1.73 (1.2-3.4) K/uL Dukes # (Auto) 0.47 (0.11-0.59) K/uL Eos # (Auto) 0.01 (0-0.5) K/uL Baso # (Auto) 0.01 (0-0.2) K/uL Sodium 136 (136-145) mmol/L Potassium 4.5 (3.5-5.1) mmol/L Chloride 107 (98-107) mmol/L Carbon Dioxide 24 (21-32) mmol/L Anion Gap 5.0 (3-11) BUN 20 H (7-18) mg/dl Creatinine 0.79 (0.6-1.2) mg/dl Est Cr Clr Drug Dosing 58.8 ml/min Est GFR ( Amer) 88.5 Est GFR (Non-Af Amer) 76.4 BUN/Creatinine Ratio 24.9 H (10-20) Glucose 138 H (70-99) mg/dl Calcium 8.5 (8.5-10.1) mg/dl Total Bilirubin 0.3 (0.2-1) mg/dl AST 10 L (15-37) U/L ALT 12 (12-78) U/L Alkaline Phosphatase 68 (45-117) U/L Total Protein 6.0 L D (6.4-8.2) gm/dl Albumin 2.2 L (3.4-5.0) gm/dl Globulin 3.8 (2.5-4.0) gm/dl Albumin/Globulin Ratio 0.6 L (0.9-2) Microbiology 11/17/19 07:25 Gram Stain - Final Abdomen Aerobic and Anaerobic Culture - Preliminary Gram negative bacilli 11/17/19 07:25 Gram Stain - Final Abdomen
[2019-11-18] MEDS: ACETAMINOPHEN 1,000 MG/100 ML VIAL IV PRN (10:25)
[2019-11-18] MEDS ORDERED: MEPERIDINE HCL 50 MG/ML CARP IV PRN (10:30)
[2019-11-18] MEDS ORDERED: MEPERIDINE HCL 25 MG/ML CARP/VIAL IV PRN (10:34)
[2019-11-18] MEDS ORDERED: metroNIDAZOLE 500 MG/100 ML BAG IV SCH (11:30)
[2019-11-18] MEDS: ENOXAPARIN INJ 40 MG/0.4 ML SYR SQ SCH (21:05)
[2019-11-19] MEDS: MEPERIDINE HCL 25 MG/ML CARP/VIAL IV PRN ×5 (01:56→21:51)
[2019-11-19] MEDS ORDERED: HYDROmorphone INJ 0.5 MG/0.5 ML SYR IV PRN (03:47)
[2019-11-19] MEDS ORDERED: HYDROmorphone INJ 1 MG/ML SYRINGE IV PRN (03:55)
[2019-11-19] MEDS ORDERED: PROMETHAZINE HCL 12.5 MG in SODIUM CHLORIDE 0.9% 50 ML IV PRN (03:57)
[2019-11-19] MEDS: D5W AND 1/2NSS + 20MEQ KCL 20 MEQ/1,000 ML BAG IV SCH ×2 (04:55→13:37)
[2019-11-19] MEDS: PIPERACILLIN/TAZOBACTAM 3.375 GM in DEXTROSE 5% 100 ML IV SCH ×3 (05:42→21:49)
--- NOTE | 2019-11-19 06:01 | Surgery Progress Note ---
Date of Service November 19, 2019 Assessment & Plan (1) Perforation of sigmoid colon due to diverticulitis: awake, alert, no distress- very anxious req webster, she pulled NG out- leave out cont IV meds- no dilaudid or Morphine anju oxycodone last hospitalization mobilize Results & Data Vital Signs (Past 12 Hours) Vital Signs Temp Pulse Pulse Resp BP Pulse Ox 11/19/19 05:31 88 11/19/19 03:24 36.7 C 101 H 20 99/63 L 90 11/18/19 23:03 36.8 C 93 H 18 96/61 L 90 11/18/19 19:12 37.7 C H 90 18 97/65 L 92 PG Care Time/CCT Total # of Minutes Spent Total Time Spent with Patient: Total time spent is greater than 50% in coordination of care (as documented) at patient's floor/unit and/or counseling patient: Coding Level of Care Code None Diagnoses Perforation of sigmoid colon due to diverticulitis K57.20
[2019-11-19] MEDS: ONDANSETRON INJ 2 MG/ML 2 ML VIAL IV PRN (07:28)
[2019-11-19 10:17] LABS: Hematocrit (blood only) 31.4 % (37-47); Hemoglobin 10.2 g/dL (12.0-16.0); Mean Corpuscular Hemoglobin 31.7 pg (25-34); Mean Corpuscular Hgb Conc 32.5 g/dL (32-36); Mean Corpuscular Volume 97.5 fL (80-100); Mean Platelet Volume 8.6 fL (7.4-10.4); Platelet Count 306 K/uL (130-400); RDW Coefficient of Variation 11.9 % (11.5-14.5); RDW Standard Deviation 42.7 fL (36.4-46.3); Red Blood Count 3.22 M/uL (4.2-5.4); White Blood Count 13.93 K/uL (4.8-10.8)
[2019-11-19 10:52] LABS: BUN Creatinine Ratio 15.2 (10-20); Calcium 8.4 mg/dl (8.5-10.1); Creatinine Clr Calc Pharmacy 70.2 ml/min; Est GFR (African American) 103.4; Est GFR (Non-African American) 89.2; Potassium 4.3 mmol/L (3.5-5.1)
[2019-11-19] MEDS: ACETAMINOPHEN 1,000 MG/100 ML VIAL IV PRN (16:28)
[2019-11-19] MEDS: ENOXAPARIN INJ 40 MG/0.4 ML SYR SQ SCH (21:49)
[2019-11-20] MEDS: D5W AND 1/2NSS + 20MEQ KCL 20 MEQ/1,000 ML BAG IV SCH ×3 (00:10→19:28)
[2019-11-20] MEDS: ONDANSETRON INJ 2 MG/ML 2 ML VIAL IV PRN ×2 (01:00→21:40)
[2019-11-20] MEDS: MEPERIDINE HCL 25 MG/ML CARP/VIAL IV PRN (02:08)
[2019-11-20] MEDS: ACETAMINOPHEN 1,000 MG/100 ML VIAL IV PRN (04:21)
[2019-11-20] MEDS: PIPERACILLIN/TAZOBACTAM 3.375 GM in DEXTROSE 5% 100 ML IV SCH ×3 (06:06→21:40)
--- NOTE | 2019-11-20 06:31 | Surgery Progress Note ---
Date of Service November 20, 2019 Assessment & Plan (1) Perforation of sigmoid colon due to diverticulitis: anju NG removal, min GI function min distention will try clear liquids labs in am 11/21 try to mobilize- leave webster for now Results & Data Vital Signs (Past 12 Hours) Vital Signs Temp Pulse Pulse Pulse Resp BP Pulse Ox 11/20/19 02:58 36.8 C 88 18 105/69 90 11/20/19 02:33 83 11/19/19 22:52 36.8 C 85 18 108/72 92 11/19/19 19:33 36.3 C L 85 20 108/71 93 PG Care Time/CCT Total # of Minutes Spent Total Time Spent with Patient: Total time spent is greater than 50% in coordination of care (as documented) at patient's floor/unit and/or counseling patient: Coding Level of Care Code None Diagnoses Perforation of sigmoid colon due to diverticulitis K57.20
[2019-11-20 06:49] LABS: Hematocrit (blood only) 30.5 % (37-47); Hemoglobin 9.9 g/dL (12.0-16.0); Mean Corpuscular Hemoglobin 31.4 pg (25-34); Mean Corpuscular Hgb Conc 32.5 g/dL (32-36); Mean Corpuscular Volume 96.8 fL (80-100); Mean Platelet Volume 8.4 fL (7.4-10.4); Platelet Count 297 K/uL (130-400); RDW Coefficient of Variation 11.9 % (11.5-14.5); RDW Standard Deviation 42.6 fL (36.4-46.3); Red Blood Count 3.15 M/uL (4.2-5.4); White Blood Count 11.85 K/uL (4.8-10.8)
[2019-11-20 07:14] LABS: Calcium 8.7 mg/dl (8.5-10.1); Est GFR (African American) 106.6; Potassium 4.1 mmol/L (3.5-5.1)
[2019-11-20] MEDS: KETOROLAC TROMETHAMINE 15 MG/ML VIAL IV PRN ×2 (09:02→17:09)
[2019-11-20] MEDS: ENOXAPARIN INJ 40 MG/0.4 ML SYR SQ SCH (21:39)
[2019-11-21] MEDS: ACETAMINOPHEN 1,000 MG/100 ML VIAL IV PRN (01:09)
[2019-11-21 05:53] LABS: Basophils # (auto) 0.03 K/uL (0-0.2); Basophils % (auto) 0.3 %; Eosinophils # (auto) 0.51 K/uL (0-0.5); Eosinophils % (auto) 4.6 %; Hematocrit (blood only) 32.3 % (37-47); Hemoglobin 10.5 g/dL (12.0-16.0); Immature Granulocytes # (auto) 0.03 K/uL (0.00-0.02); Immature Granulocytes % (auto) 0.3 %; Lymphocytes % (auto) 17.2 %; Mean Corpuscular Hemoglobin 31.3 pg (25-34); Mean Corpuscular Hgb Conc 32.5 g/dL (32-36); Mean Corpuscular Volume 96.4 fL (80-100); Mean Platelet Volume 8.6 fL (7.4-10.4); Monocytes # (auto) 0.61 K/uL (0.11-0.59); Monocytes % (auto) 5.5 %; Neutrophils # (auto) 7.94 K/uL (1.4-6.5); Neutrophils % (auto) 72.1 %; Platelet Count 355 K/uL (130-400); RDW Coefficient of Variation 11.5 % (11.5-14.5); Red Blood Count 3.35 M/uL (4.2-5.4); White Blood Count 11.02 K/uL (4.8-10.8)
[2019-11-21] MEDS: D5W AND 1/2NSS + 20MEQ KCL 20 MEQ/1,000 ML BAG IV SCH ×2 (06:04→16:19)
[2019-11-21] MEDS: PIPERACILLIN/TAZOBACTAM 3.375 GM in DEXTROSE 5% 100 ML IV SCH ×3 (06:04→21:47)
[2019-11-21 06:18] LABS: Albumin Level 2.2 gm/dl (3.4-5.0); BUN Creatinine Ratio 8.6 (10-20); BUN Creatinine Ratio 8.9 (10-20); Calcium 8.3 mg/dl (8.5-10.1); Calcium 8.6 mg/dl (8.5-10.1); Creatinine Clr Calc Pharmacy 75.7 ml/min; Creatinine Clr Calc Pharmacy 76.9 ml/min; Est GFR (African American) 105.5; Est GFR (African American) 106.1; Est GFR (Non-African American) 91.5; Magnesium 2.1 mg/dl (1.8-2.4)
[2019-11-21 06:21] LABS: Albumin Globulin Ratio 0.6 (0.9-2); Bilirubin,Total 0.4 mg/dl (0.2-1); Phosphorus 3.2 mg/dl (2.5-4.9); Total Protein 6.2 gm/dl (6.4-8.2)
[2019-11-21] MEDS: ONDANSETRON INJ 2 MG/ML 2 ML VIAL IV PRN (07:43)
[2019-11-21] MEDS: KETOROLAC TROMETHAMINE 15 MG/ML VIAL IV PRN ×2 (10:36→20:31)
[2019-11-21] MEDS ORDERED: OXYCODONE HCL IR 5 MG TAB (IMMEDIATE RELEASE) PO PRN (10:36)
--- NOTE | 2019-11-21 12:14 | Surgery Progress Note ---
Date of Service November 21, 2019 Assessment & Plan (1) Perforation of sigmoid colon due to diverticulitis: POD # 4 s/p exploratory laparotomy with sigmoid resection and Hartmans with end colostomy for perforated sigmoid diverticulitis with abscess -vitals stable - afebrile - leukocytosis of 11k improving - moderate pain, better controlled - liquid stool output in colostomy - adequate urine output Plan: Continue pain management, will start IV Tylenol prn and continue IV Demerol prn, will add PO Oxycodone Full liquids, miralax, nurse teching care for colostomy Continue dewey drain to bulb suction Continue IV Zofran prn nausea Continue IV fluids, 50ml/h, SCDS and Lovenox for DVT prophylaxis Recommend OOB to chair and ambulate hallway PT/OT consults Dr. San to see patient this afternoon. Subjective feeling better today liquid stool in colostomy tolerating clears slowly pain better controlled but sitll present mild nausea, controlled no vomiting ambulated hallway today x 2 Physical Exam Constitutional: WD/WN, vitals as above no acute distress Respiratory: normal respiratory effort; no respiratory distress Gastrointestinal (Abdomen): Inspection/Auscultation: abdomen normal to inspection and + abdominal surgical drain present (serosanguineous); abdomen not distended Percussion/Palpation: + abdomen tender (midline incision and RLQ at drain site) and abdomen soft; no guarding and abdomen not rigid Colostomy Left abdomen with some liquid brown stool present, stoma beefy red Skin: no rashes, warm and dry + incision (midline incision clean/dry/intact with adry) Psychiatric: A+Ox3, euthymic affect Results & Data Vital Signs (Past 12 Hours) Vital Signs Temp Pulse Pulse Resp BP Pulse Ox 11/21/19 11:42 36.7 C 80 18 136/95 99 11/21/19 07:42 37.1 C 58 L 16 126/82 93 11/21/19 05:00 85 11/21/19 02:59 36.9 C 79 18 120/77 94 Laboratory Results 11/21/19 11/21/19 11/21/19 Range/Units 05:16 05:16 05:16 WBC 11.02 H (4.8-10.8) K/uL RBC 3.35 L (4.2-5.4) M/uL Hgb 10.5 L (12.0-16.0) g/dL Hct 32.3 L (37-47) % MCV 96.4 (80-100) fL MCH 31.3 (25-34) pg MCHC 32.5 (32-36) g/dL RDW Std Deviation 41.0 (36.4-46.3) fL RDW Coeff of Don 11.5 (11.5-14.5) % Plt Count 355 (130-400) K/uL MPV 8.6 (7.4-10.4) fL Immature Gran % (Auto) 0.3 % Neut % (Auto) 72.1 % Lymph % (Auto) 17.2 % Waller % (Auto) 5.5 % Eos % (Auto) 4.6 % Baso % (Auto) 0.3 % Immature Gran # (Auto) 0.03 H (0.00-0.02) K/uL Neut # (Auto) 7.94 H (1.4-6.5) K/uL Lymph # (Auto) 1.90 (1.2-3.4) K/uL Waller # (Auto) 0.61 H (0.11-0.59) K/uL Eos # (Auto) 0.51 H (0-0.5) K/uL Baso # (Auto) 0.03 (0-0.2) K/uL Sodium 138 139 (136-145) mmol/L Potassium 4.0 4.0 (3.5-5.1) mmol/L Chloride 106 106 (98-107) mmol/L Carbon Dioxide 30 29 (21-32) mmol/L Anion Gap 2.0 L 4.0 (3-11) BUN 6 L 5 L (7-18) mg/dl Creatinine 0.64 0.63 (0.6-1.2) mg/dl Est Cr Clr Drug Dosing 75.7 76.9 ml/min Est GFR ( Amer) 105.5 106.1 Est GFR (Non-Af Amer) 91.0 91.5 BUN/Creatinine Ratio 8.9 L 8.6 L (10-20) Glucose 125 H 117 H (70-99) mg/dl Calcium 8.3 L 8.6 (8.5-10.1) mg/dl Phosphorus 3.2 (2.5-4.9) mg/dl Magnesium 2.1 (1.8-2.4) mg/dl Total Bilirubin 0.4 (0.2-1) mg/dl AST 17 (15-37) U/L ALT 22 (12-78) U/L Alkaline Phosphatase 106 (45-117) U/L Total Protein 6.2 L (6.4-8.2) gm/dl Albumin 2.2 L (3.4-5.0) gm/dl Globulin 4.0 (2.5-4.0) gm/dl Albumin/Globulin Ratio 0.6 L (0.9-2) Microbiology 11/17/19 07:25 Gram Stain - Final Abdomen Aerobic and Anaerobic Culture - Preliminary Escherichia coli Pseudomonas aeruginosa Prevotella melaninogenica
[2019-11-21] MEDS ORDERED: POLYETHYLENE (MIRALAX) 17 GM PACK PO PRN (14:44)
[2019-11-21] MEDS: ENOXAPARIN INJ 40 MG/0.4 ML SYR SQ SCH (21:48)
[2019-11-22] MEDS: KETOROLAC TROMETHAMINE 15 MG/ML VIAL IV PRN (02:37)
[2019-11-22] MEDS: D5W AND 1/2NSS + 20MEQ KCL 20 MEQ/1,000 ML BAG IV SCH (02:40)
[2019-11-22] MEDS: PIPERACILLIN/TAZOBACTAM 3.375 GM in DEXTROSE 5% 100 ML IV SCH (05:56)
[2019-11-22] MEDS: ONDANSETRON INJ 2 MG/ML 2 ML VIAL IV PRN (07:25)
--- NOTE | 2019-11-23 08:00 | Discharge Summary (DS) ---
ADMITTING DIAGNOSES: Perforated sigmoid colon diverticulitis with peritonitis. DISCHARGE DIAGNOSES: Perforated sigmoid colon diverticulitis with peritonitis. OPERATION: An emergency exploratory laparotomy, sigmoid colon resection, colostomy. SURGEON: Julio San MD. DETAILS OF DISCHARGE SUMMARY: This is a 69-year-old female who presented to ED with couple day history of abdominal pain. The patient had a CT scan diagnosis perforated sigmoid colon diverticulitis and then we took the patient to the OR, we did exploratory laparotomy, sigmoid colon resection and colostomy. In the OR, we found the patient had acute sigmoid colon diverticulitis with perforation, severe contamination. After the procedure, the patient is doing fine and patient walked around and tolerated the diet. No nausea, no vomiting. PHYSICAL EXAMINATION: VITAL SIGNS: Temperature is 36.6, the respiratory rate 20, heart rate is 85, blood pressure 126/81, O2 saturation 94% on room air. GENERAL: The patient is alert, awake, oriented x3. HEENT: With normal limitation. NEUROLOGIC: Intact. NECK: No JVD. CHEST: Bilateral lung sounds clear. HEART: Normal S1, S2. No murmur. ABDOMEN: Soft, no tenderness. All incision intact and no redness, no drainage. Colostomy is working fine. There was some stool came out. The patient had 1 KAYDEN drainage around 100 mL per day. EXTREMITIES: No edema. PLAN: The patient wanted to go home today. We gave the patient postop care instruction. The patient to empty her KAYDEN drainage. If the KAYDEN drainage bowel is full, record the output every day and if she develops no new symptoms like fever or severe pain patient should come back to my office or go to the hospital ER and also I gave the patient 7 days of Cipro and Flagyl p.o., tramadol 50 mg p.o. q. 8 hours p.r.n. for pain. I will follow up the patient in 1 or 2 weeks. The patient understands.
[2019-11-23] MEDS ORDERED: CHOLECALCIFEROL (VITAMIN D) 400 UNITS TABLET PO SCH (09:00)
== END 2019-11-22 12:20 | disposition home health service (06) | DRG 331 ==
LOC: ED 02:00 → OR 05:49 → 2W 10:15